=== PATIENT | female | born 1950 | race Caucasian/White ===

== ENCOUNTER → 2017-03-14 | Outpatient (CLI) | payer OTHER ==
--- NOTE | 2017-03-14 14:32 | MAMMOGRAPHY REPORT ---
BILATERAL DIGITAL SCREENING MAMMOGRAM WITH CAD: 03/14/2017 CLINICAL HISTORY: Routine screening examination. TECHNIQUE: Bilateral CC, MLO and repeat left cc views were obtained. Current study was also evaluat ed with a Computer Aided Detection (CAD) system. COMPARISON: Comparison is made to exams dated: 03/11/2016 mammogram, 03/10/2015 mammogram, 03/04/2014 ma mmogram, 03/01/2013 mammogram, 02/14/2012 mammogram, and 02/12/2011 ultrasound - [facility] nter. BREAST COMPOSITION: The tissue of both breasts is heterogeneously dense, which may obscure small mas ses. FINDINGS: There is a 4.5 mm nodular asymmetry in the superior posterior right breast, only seen on t he MLO view. Although this could represent normal overlapping fibroglandular tissue, additional spot compression tomosynthesis, exaggerated lateral CC tomosynthesis views and possibly ultrasound are re commended. There are minimal vascular calcifications in the breasts and a few scattered benign punctate microcal cifications. No other suspicious mass, architectural distortion or cluster of microcalcifications is seen bilaterally. IMPRESSION: ACR BI-RADS CATEGORY 0: INCOMPLETE EVALUATION: NEED ADDITIONAL IMAGING EVALUATION The 4.5 mm nodular asymmetry in the superior right breast on the MLO view needs additional evaluation . The patient will be called to schedule an appointment. Approximately 10% of breast cancers are not detected with mammography. A negative mammographic report should not delay biopsy if a clinically suggestive mass is present. Selina Carrion M.D. ay/:03/14/2017 12:55:24 Manager Body: Mariaa LIZARRAGA(Maria Dolores)(Zandra), [facility] letter sent: Addl Imaging 0 BI-RADS Code: ACR BI-RADS Category 0: Incomplete Evaluation: Need Additional Imaging Evaluation
== END | disposition home or self-care (01) ==
LOC: C.MAMM 10:38
PROVIDERS: ATTEND Family Medicine
DX: Z12.31 Encounter for screening mammogram for malignant neoplasm of breast (principal); N64.89 Other specified disorders of breast

== ENCOUNTER → 2017-03-22 | Outpatient (CLI) | payer OTHER ==
--- NOTE | 2017-03-22 14:53 | MAMMOGRAPHY REPORT ---
UNILATERAL RIGHT DIGITAL DIAGNOSTIC MAMMOGRAM TOMOSYNTHESIS AND TARGETED RIGHT ULTRASOUND: 03/22/2017 CLINICAL HISTORY: 66-year-old woman called back from screening mammography for a 5 mm nodular asymmet ry in the far superior right breast on the MLO view. Family history of breast cancer = sister and ni daphne. TECHNIQUE: Spot compression right MLO 2-D and tomosynthesis, spot compression exaggerated lateral CC 2-D and tomosynthesis, full-field right MLO tomosynthesis images were obtained. COMPARISON: Comparison is made to exams dated: 03/14/2017 mammogram, 03/11/2016 mammogram, 03/10/2015 m ammogram, 03/04/2014 mammogram, 02/14/2012 mammogram, and 02/12/2011 ultrasound - [facility] enter. BREAST COMPOSITION: The tissue of the right breast is heterogeneously dense, which may obscure small masses. FINDINGS: All of the supplemental mammographic views including the repeat full field MLO tomosynthes is images demonstrate effacement of the nodular asymmetry in the far superior breast located 10 cm fr om the nipple. The appearance on the current MLO view appears very similar to the 2016 exam, suggest ing the nodular asymmetry represented normal overlapping tissue. There is no focal area of wireless architect ural distortion, suspicious mass or suspicious microcalcifications. Real-time high-resolution ultrasound was performed throughout the superior right breast. Sonographic ally normal tissue is seen without a suspicious solid or cystic mass. IMPRESSION: ACR BI-RADS CATEGORY 2: BENIGN, TARGETED ULTRASOUND ACR BI-RADS CATEGORY 2: BENIGN Effacement of the 5 mm nodular asymmetry in the superior right breast on the MLO view, and no suspici ous sonographic correlate. This most likely represented normal overlapping tissue. There is no mamm ographic or targeted sonographic evidence of malignancy in the right breast. Recommend routine mammo grams in one year. Approximately 10% of breast cancers are not detected with mammography. A negative mammographic report should not delay biopsy if a clinically suggestive mass is present. Selina Carrion M.D. ay/:03/22/2017 10:20:00 Fruit Pitter: Eloisa TRENT)(Zandra), [facility] letter sent: Normal 1/2 BI-RADS Code: ACR BI-RADS Category 2: Benign Ultrasound BI-RADS: ACR BI-RADS Category 2: Benign
== END | disposition home or self-care (01) ==
LOC: C.MAMM 09:37
PROVIDERS: ATTEND Family Medicine
DX: N64.89 Other specified disorders of breast (principal)

== ENCOUNTER → 2018-03-21 | Outpatient (CLI) | payer OTHER ==
--- NOTE | 2018-03-21 15:12 | MAMMOGRAPHY REPORT ---
BILATERAL DIGITAL SCREENING MAMMOGRAM TOMOSYNTHESIS WITH CAD: 03/21/2018 CLINICAL HISTORY: Routine screening. Patient has no complaints. TECHNIQUE: The study was acquired using full field digital technology and interpreted from soft copy. Breast tomosynthesis in addition to standard 2D mammography was performed. Current study was also ev aluated with a Computer Aided Detection (CAD) system. COMPARISON: Comparison is made to exams dated: 03/22/2017 mammogram, 03/14/2017 mammogram, 03/11/2016 m ammogram, 03/10/2015 mammogram, 03/04/2014 mammogram, and 03/01/2013 mammogram - [facility] ter. BREAST COMPOSITION: The tissue of both breasts is heterogeneously dense, which may obscure small mass es. FINDINGS: The parenchymal pattern is unchanged. No developing mass, architectural distortion or cluster of susp icious microcalcifications is seen in either breast. IMPRESSION: ACR BI-RADS CATEGORY 2: BENIGN There is no mammographic evidence of malignancy. A 1 year screening mammogram is recommended.( [id number]) The patient will receive written notification of the results. Some breast cancers are not detected with mammography. A negative mammographic report should not mo y biopsy if a clinically suggestive mass is present. Selina Carrion M.D. ay/:03/21/2018 14:44:16 Rn L And D: RT Kevin(Maria Dolores)(M)(BD), [facility] letter sent: Normal 1/2 BI-RADS Code: ACR BI-RADS Category 2: Benign
== END | disposition home or self-care (01) ==
LOC: C.MAMM 10:27
PROVIDERS: ATTEND Family Medicine
DX: Z12.31 Encounter for screening mammogram for malignant neoplasm of breast (principal)

== ENCOUNTER 2025-06-17 13:06 | Inpatient (IN) ==
--- NOTE | 2025-06-17 13:17 | Emergency Department Note ---
Impression & Plan Intertrochanteric fracture of right femur, Fall ED Provider Note NAME: Zandra LONDON AGE: 74 SEX: F : 1950 ARRIVES VIA: Ambulance INFORMANT: Patient, ED PROVIDER(S): Loy Wall MD CHIEF COMPLAINT: Right hip pain MEDICAL DECISION MAKING: Patient presents with the above. IV was established and blood work was obtained. Patient was ordered right hip and pelvis x-rays. Given the associated groin pain concerned the patient may have a pelvic fracture and/or hip frx. The patient was ordered IV morphine 2 mg and IV Tylenol. Review of the patient's hip x-ray does show concern for a right intertrochanteric fracture. Yu catheter was placed. Patient with a white count 3.8. The patient's hemoglobin 11.9 virtually normal with normal platelet count kidney function is unremarkable. Urinalysis shows leuks and whites but denies any urinary symptoms. I did speak with the on-call hospital service Dr. Roca. I also did message with the on-call Ortho PA Byron Sr under Dr. Chao. They will plan to see here in the morning. I did inform the patient of the findings as well as her family at bedside. They were comfortable with plan of care. Patient was ordered additional pain medication IV fentanyl 50 mcg. Discussion w/ other healthcare providers: Byron Sr PA-C with Dr. Chao orthopedics Dr. Roca inpatient medicine service Prior /Outside records reviewed: None Differential diagnosis: Fracture, sprain, strain, subluxation, dislocation, contusion, ligamentous injury, neurovascular, as well as other etiologies were considered. Diagnostics, as interpreted by me: ECG: None Cardiac monitoring: An order was placed for continuous cardiac monitoring. The monitor shows a rate of 75 with sinus rhythm. Patient was placed on pulse oximetry Medical decision rules: None Imaging studies: I informally interpreted the patient's hip and pelvis x-ray does show a right intertrochanteric fracture with formal report to follow. HPI: Patient presents to concern for right hip and groin pain. The patient states that she was at the gym slightly missed stepped and she tried to catch herself but eventually fell over onto her right hip. Patient denies any head strike or LOC. The patient had immediate pain but was unable to get up. The patient feels as though she cannot straighten out the leg. She denies any numbness. No pain medication administered prior to arrival. PAST MEDICAL HISTORY: See Below PAST SURGICAL HISTORY: See Below SOCIAL HISTORY: See Below HOME MEDICATIONS: See Below ALLERGIES: See Below VITALS: See Below PHYSICAL EXAMINATION: GENERAL: NAD, non-toxic. EYE EXAM: Normal conjunctiva. PERRL, no anisocoria and EOM's grossly intact w/o pain. OROPHARYNX: Moist mucus membranes, grossly normal dentition. NECK: Trachea midline, no stridor. LUNGS: Clear to auscultation. Normal chest wall mechanics. HEART: NSR, no MRG. ABDOMEN: Abdomen soft, non-tender, no masses, no rebound or guarding. BACK: No CVA TTP. SKIN: No rashes and no bruising. UPPER EXTREMITIES: Upper extremities are grossly normal. LOWER EXTREMITIES: Pain to palpation over the right hip. No obvious leg length discrepancy. Pain with trying to straighten out the leg. NEURO EXAM: Awake and alert, follows commands, no obvious facial asymmetry, normal speech, moves all 4 extremities. Past Med/Surg History Problem List (Updated 06/17/25 @ 17:46 by Loy Wall MD) Intertrochanteric fracture of right femur (Acute) Fall (Acute) Medical History Parkinson disease Urinary, incontinence, stress female Depression Hypothyroidism Surgical History History of cataract surgery left History of colonoscopy History of bilateral tubal ligation History of tooth extraction History of tonsillectomy Family History Other No family history of adverse response to anesthesia Social History Smoking Status: Never smoker Second Hand Exposure: Yes (as a child); Do You Dip or Chew Tobacco: No; Hx Alcohol Use: No Preferred Language: [employer] [employer] Required: No Beliefs That Will Affect Care: None Current Living Situation: Family Current Living Situation Comment: with nephew Feels Safe at Home: Yes Assistive Devices: Denture - Upper and Glasses Allergies Allergies Allergy/AdvReac Type Severity Reaction Status Date / Time No Known Allergies Allergy Verified 06/17/25 16:06 Home Meds Home Medications Medication Instructions Recorded Confirmed Juice Plus Dose 1 cap PO BID 02/25/23 06/17/25 aspirin 81 mg tablet,delayed 81 mg PO DAILY 02/25/23 06/17/25 release calcium 200 mg (as 3 tab PO DAILY 02/25/23 06/17/25 citrate)-vitamin D3 3.125 mcg (125 unit) tablet cholecalciferol (vitamin D3) 25 25 mcg PO QAM 02/25/23 06/17/25 mcg (1,000 unit) tablet (Vitamin D3) fluoxetine 20 mg tablet 20 mg PO QAM 02/25/23 06/17/25 fluoxetine 40 mg capsule 40 mg PO QAM 02/25/23 06/17/25 levothyroxine 50 mcg capsule 50 mcg PO QAM 02/25/23 06/17/25 carbidopa 25 mg-levodopa 100 mg 1 tab PO DAILY 06/17/25 06/17/25 tablet duloxetine 30 mg capsule,delayed 30 mg PO DAILY 06/17/25 06/17/25 release duloxetine 60 mg capsule,delayed 60 mg PO DAILY 06/17/25 06/17/25 release estradiol 0.01% (0.1 mg/gram) 1 applic vaginal DAILY 06/17/25 06/17/25 vaginal cream fesoterodine 8 mg tablet,extended 8 mg PO DAILY 06/17/25 06/17/25 release 24 hr mirabegron 50 mg tablet,extended 50 mg PO DAILY 06/17/25 06/17/25 release 24 hr (Myrbetriq) rasagiline 0.5 mg tablet 0.5 mg PO DAILY 06/17/25 06/17/25 Results & Data (ED) Vital Signs Vital Signs - 24 hr 06/17/25 13:14 06/17/25 13:24 06/17/25 13:25 Temperature 36.8 C Temperature Source Oral Pulse Rate 81 79 75 Pulse Rate from SpO2 Sensor 78 Pulse Rhythm Regular Pulse Strength Normal Respiratory Rate 16 16 Respiratory Effort / Characteristics Non-Labored Spontaneous Respiratory Depth Normal Respiratory Pattern Regular Blood Pressure 159/115 H Blood Pressure Mean 129 Pulse Oximetry 99 98 Oxygen Delivery Method Room Air Sepsis Recent Fever Within 48 Hours No Sepsis New/Unexplained Change in Mental Status N/A Sepsis Action Taken by Nursing No Action Required 06/17/25 13:30 06/17/25 13:42 06/17/25 13:51 Temperature Temperature Source Pulse Rate 70 77 73 Pulse Rate from SpO2 Sensor 69 77 74 Pulse Rhythm Pulse Strength Respiratory Rate 19 15 16 Respiratory Effort / Characteristics Respiratory Depth Respiratory Pattern Blood Pressure Blood Pressure Mean Pulse Oximetry 98 99 99 Oxygen Delivery Method Sepsis Recent Fever Within 48 Hours Sepsis New/Unexplained Change in Mental Status Sepsis Action Taken by Nursing 06/17/25 14:00 06/17/25 14:12 06/17/25 14:18 Temperature Temperature Source Pulse Rate 67 71 82 Pulse Rate from SpO2 Sensor 67 70 Pulse Rhythm Pulse Strength Respiratory Rate 17 19 20 Respiratory Effort / Characteristics Respiratory Depth Respiratory Pattern Blood Pressure Blood Pressure Mean Pulse Oximetry 100 99 Oxygen Delivery Method Sepsis Recent Fever Within 48 Hours Sepsis New/Unexplained Change in Mental Status Sepsis Action Taken by Nursing 06/17/25 14:26 06/17/25 14:26 06/17/25 14:26 Temperature Temperature Source Pulse Rate Pulse Rate from SpO2 Sensor Pulse Rhythm Pulse Strength Respiratory Rate Respiratory Effort / Characteristics Respiratory Depth Respiratory Pattern Blood Pressure 137/82 137/82 137/82 Blood Pressure Mean 104 104 104 Pulse Oximetry Oxygen Delivery Method Sepsis Recent Fever Within 48 Hours Sepsis New/Unexplained Change in Mental Status Sepsis Action Taken by Nursing 06/17/25 14:26 06/17/25 14:26 06/17/25 14:27 Temperature Temperature Source Pulse Rate 71 Pulse Rate from SpO2 Sensor Pulse Rhythm Pulse Strength Respiratory Rate 19 Respiratory Effort / Characteristics Respiratory Depth Respiratory Pattern Blood Pressure 137/82 137/82 Blood Pressure Mean 104 104 Pulse Oximetry Oxygen Delivery Method Sepsis Recent Fever Within 48 Hours Sepsis New/Unexplained Change in Mental Status Sepsis Action Taken by Nursing 06/17/25 14:30 06/17/25 14:42 06/17/25 14:51 Temperature Temperature Source Pulse Rate 80 72 70 Pulse Rate from SpO2 Sensor Pulse Rhythm Pulse Strength Respiratory Rate 18 18 19 Respiratory Effort / Characteristics Respiratory Depth Respiratory Pattern Blood Pressure Blood Pressure Mean Pulse Oximetry Oxygen Delivery Method Sepsis Recent Fever Within 48 Hours Sepsis New/Unexplained Change in Mental Status Sepsis Action Taken by Nursing 06/17/25 15:00 06/17/25 15:00 06/17/25 15:00 Temperature Temperature Source Pulse Rate 76 Pulse Rate from SpO2 Sensor Pulse Rhythm Pulse Strength Respiratory Rate 16 Respiratory Effort / Characteristics Respiratory Depth Respiratory Pattern Blood Pressure 120/79 120/79 Blood Pressure Mean 90 90 Pulse Oximetry Oxygen Delivery Method Sepsis Recent Fever Within 48 Hours Sepsis New/Unexplained Change in Mental Status Sepsis Action Taken by Nursing 06/17/25 15:00 06/17/25 15:00 06/17/25 15:00 Temperature Temperature Source Pulse Rate Pulse Rate from SpO2 Sensor Pulse Rhythm Pulse Strength Respiratory Rate Respiratory Effort / Characteristics Respiratory Depth Respiratory Pattern Blood Pressure 120/79 120/79 120/79 Blood Pressure Mean 90 90 90 Pulse Oximetry Oxygen Delivery Method Sepsis Recent Fever Within 48 Hours Sepsis New/Unexplained Change in Mental Status Sepsis Action Taken by Nursing 06/17/25 15:12 06/17/25 15:21 06/17/25 15:30 Temperature Temperature Source Pulse Rate 69 72 75 Pulse Rate from SpO2 Sensor Pulse Rhythm Pulse Strength Respiratory Rate 16 18 21 Respiratory Effort / Characteristics Respiratory Depth Respiratory Pattern Blood Pressure Blood Pressure Mean Pulse Oximetry Oxygen Delivery Method Sepsis Recent Fever Within 48 Hours Sepsis New/Unexplained Change in Mental Status Sepsis Action Taken by Nursing 06/17/25 15:42 06/17/25 15:46 06/17/25 15:51 Temperature Temperature Source Pulse Rate 74 78 Pulse Rate from SpO2 Sensor Pulse Rhythm Pulse Strength Respiratory Rate 17 16 Respiratory Effort / Characteristics Respiratory Depth Respiratory Pattern Blood Pressure 120/79 Blood Pressure Mean 92 Pulse Oximetry 97 99 Oxygen Delivery Method Room Air Room Air Sepsis Recent Fever Within 48 Hours Sepsis New/Unexplained Change in Mental Status Sepsis Action Taken by Nursing 06/17/25 17:30 Temperature Temperature Source Pulse Rate 76 Pulse Rate from SpO2 Sensor Pulse Rhythm Pulse Strength Respiratory Rate 20 Respiratory Effort / Characteristics Respiratory Depth Respiratory Pattern Blood Pressure 132/73 Blood Pressure Mean 92 Pulse Oximetry 98 Oxygen Delivery Method Sepsis Recent Fever Within 48 Hours Sepsis New/Unexplained Change in Mental Status Sepsis Action Taken by Assisted Medications Current Medication List: was personally reviewed by me Laboratory Data Attestation: I reviewed the patient's lab results. 06/17/25 13:55 06/17/25 13:55 Lab Results 06/17/25 06/17/25 Range/Units 13:55 14:26 WBC 3.83 L (4.8-10.8) K/ul RBC 3.78 L (4.20-5.40) M/uL Hgb 11.9 L (12.0-16.0) g/dL Hct 35.8 L (37.0-47.0) % MCV 94.7 (80.0-100.0) fL MCH 31.5 (25.0-34.0) pg MCHC 33.2 (32.0-36.0) g/dL RDW Std Deviation 41.8 (36.4-46.3) fL RDW Coeff of Asha 12.0 (11.5-14.5) % Plt Count 186 (130-400) K/uL MPV 9.3 L (9.4-12.4) fL Immature Gran % (Auto) 0.3 % Neut % (Auto) 57.4 % Lymph % (Auto) 30.0 % [place] % (Auto) 9.1 % Eos % (Auto) 2.9 % Baso % (Auto) 0.3 % Neut # (Auto) 2.20 (1.40-6.50) K/uL Lymph # (Auto) 1.15 L (1.20-3.40) K/uL [place] # (Auto) 0.35 (0.11-0.59) K/uL Eos # (Auto) 0.11 (0.00-0.50) K/uL Baso # (Auto) 0.01 (0.00-0.20) K/uL Immature Gran # (Auto) 0.01 (0.01-0.20) K/uL PT 10.8 (9.0-12.0) Seconds INR 1.0 (0.9-1.1) APTT 23 (21-31) Seconds PTT Ratio 0.8 Sodium 139 (136-145) mmol/L Potassium 4.2 (3.5-5.1) mmol/L Chloride 105 (98-107) mmol/L Carbon Dioxide 30 (21-32) mmol/L Anion Gap 4 (3-11) BUN 17 (6-23) mg/dl Creatinine 0.63 (0.6-1.2) mg/dl Est Cr Clr Drug Dosing 69.9 ml/min eGFR 93.03 BUN/Creatinine Ratio 27.0 H (10-20) Glucose 90 (70-99(Fasting)) mg/dl Calcium 9.1 (8.6-10.3) mg/dl Total Bilirubin 0.4 (0.2-1.0) mg/dl AST 19 (13-39) U/L ALT 6 L (7-52) U/L Alkaline Phosphatase 71 (34-104) U/L Total Protein 6.3 (6.0-8.3) gm/dl Albumin 3.5 (3.4-5.0) gm/dl Globulin 2.8 (2.5-4.0) gm/dl Albumin/Globulin Ratio 1.3 (0.9-2) Urine Color Yellow Urine Appearance Clear (Clear) Urine pH 7.5 (4.5-7.5) Ur Specific Dorothy 1.009 (1.000-1.030) Urine Protein Negative (Negative) Urine Glucose (UA) Negative (Negative) Urine Ketones Negative (Negative) Urine Blood Negative (Negative) Urine Nitrite Negative (Negative) Urine Bilirubin Negative (Negative) Urine Urobilinogen Negative (Negative) Ur Leukocyte Esterase 3+ H (Negative) Urine WBC (Auto) 6-10 H (0-5) /hpf Urine RBC (Auto) 0-2 (0-2) /hpf U Hyaline Cast (Auto) 0-2 (0-2) /lpf U Epithel Cells (Auto) 0-2 (0-2) /hpf Urine Bacteria (Auto) None Seen (None Seen) Urine Comment Administered Medications Discontinued Medications Fentanyl Citrate (Fentanyl Citrate Pf 100 Mcg/2 Ml Vial) 50 mcg IV NOW STA Stop: 06/17/25 15:30 Last Admin: 06/17/25 15:40 Dose: 50 mcg Documented By: nrs Acetaminophen (Ofirmev) 1,000 mg in 100 mls @ 400 mls/hr IV NOW STA Stop: 06/17/25 13:53 Last Infusion: 06/17/25 15:41 Dose: Infused Documented By: nrs Admin: 06/17/25 14:20 Dose: 400 mls/hr Documented By: nrs Morphine Sulfate (Morphine Sulfate 2 Mg/Ml Carp) 2 mg IV NOW STA Stop: 06/17/25 13:40 Last Admin: 06/17/25 14:20 Dose: 2 mg Documented By: nrs Morphine Sulfate (Morphine Sulfate 4 Mg/Ml 1 Ml Carp\Vial) 3 mg IV NOW STA Stop: 06/17/25 16:38 Last Admin: 06/17/25 16:56 Dose: 3 mg Documented By: nrs Imaging Data Radiologist's Impression: Hip/Pelvis X-Ray 06/17/25 13:39 SINGLE VIEW PELVIS; 2 VIEWS RIGHT HIP CLINICAL HISTORY: Fall with right hip injury. FINDINGS: An AP view of the pelvis is obtained with AP and crosstable lateral views of the right hip. No prior studies are available for comparison at the time of dictation. The skeletal structures are osteopenic. There is a mildly displaced intertrochanteric fracture of the right proximal femur. Overlying soft tissue edema is observed. No additional acute fracture is seen involving the left hip or the bony pelvis. There is moderate to advanced arthritic change and joint space narrowing seen in both hips. Lumbosacral spondylosis is partially imaged. Degenerative sclerosis is noted in the sacroiliac joints. IMPRESSION: Intertrochanteric fracture of the right proximal femur as above. Electronically signed by: Olaf Daley M.D. 06/17/2025 3:46 PM Discharge Plan Visit Data Chief Complaint: Hip Pain Stated Complaint: FALL, R HIP PAIN ED Provider: Loy Wall Discharge Problem: Intertrochanteric fracture of right femur, Fall Patient Disposition: Admitted As Inpatient Condition: Good Forms Stand Alone Forms: [facility] [employer] Prescriptions Prescriptions: No Action fluoxetine 40 mg Capsule 40 mg PO QAM Rx Instructions: administer in the morning and at noon/midday fluoxetine 20 mg Tablet 20 mg PO QAM Rx Instructions: administer in the morning and at noon/midday levothyroxine 50 mcg Capsule 50 mcg PO QAM aspirin 81 mg Tablet,Delayed Release (Dr/Ec) 81 mg PO DAILY calcium citrate-vitamin D3 200 mg-3.125 mcg (125 unit) Tablet 3 tab PO DAILY cholecalciferol (vitamin D3) [Vitamin D3] 25 mcg (1,000 unit) Tablet 25 mcg PO QAM Juice Plus Dose 1 cap PO BID estradiol 0.01 % (0.1 mg/gram) cream 1 applic VAGINAL DAILY carbidopa-levodopa 25-100 mg tablet 1 tab PO DAILY duloxetine 30 mg capsule,delayed release(DR/EC) 30 mg PO DAILY duloxetine 60 mg capsule,delayed release(DR/EC) 60 mg PO DAILY rasagiline 0.5 mg tablet 0.5 mg PO DAILY fesoterodine 8 mg tablet extended release 24 hr 8 mg PO DAILY mirabegron [Myrbetriq] 50 mg tablet extended release 24 hr 50 mg PO DAILY Referrals Referrals: Mallory Figueroa CRNP [Primary Care Provider] - Discharge Problem: Intertrochanteric fracture of right femur Qualifiers: Encounter type: initial encounter Fracture type: closed Fracture alignment: d isplaced Qualified Code(s): S72.141A - Displaced intertrochanteric fracture of right femur, initial encounter for closed fracture Fall Qualifiers: Encounter type: initial encounter Qualified Code(s): W19.XXXA - Unspecified fall, initial encounter
[2025-06-17] MEDS: MoRPHine SULFATE 2 MG/ML CARP IV STA (14:20)
[2025-06-17] MEDS: ACETAMINOPHEN 1,000 MG/100 ML VIAL IV STA (14:20)
[2025-06-17 14:29] LABS: Hematocrit (blood only) 35.8 % (37.0-47.0); Hemoglobin 11.9 g/dL (12.0-16.0); Immature Granulocytes # (auto) 0.01 K/uL (0.01-0.20); Immature Granulocytes % (auto) 0.3 %; Mean Corpuscular Hemoglobin 31.5 pg (25.0-34.0); Mean Corpuscular Volume 94.7 fL (80.0-100.0); Platelet Count 186 K/uL (130-400); RDW Standard Deviation 41.8 fL (36.4-46.3); Red Blood Count 3.78 M/uL (4.20-5.40); White Blood Count 3.83 K/ul (4.8-10.8)
[2025-06-17 14:39] LABS: Appearance Urine Clear (Clear); Bacteria Urine Automated None Seen (None Seen); Cast Urine Automated 0-2 /lpf (0-2); Epithelial Cell Urine Auto 0-2 /hpf (0-2); Glucose Urine UA Negative (Negative); RBC Urine Automated 0-2 /hpf (0-2)
[2025-06-17 14:46] LABS: Alanine Aminotransferase 6.0 U/L (7-52); Albumin Globulin Ratio 1.3 (0.9-2); Albumin Level 3.5 gm/dl (3.4-5.0); Alkaline Phosphatase 71.0 U/L (34-104); Anion Gap 4.0 (3-11); Bilirubin,Total 0.4 mg/dl (0.2-1.0); Blood Urea Nitrogen 17.0 mg/dl (6-23); Calcium 9.1 mg/dl (8.6-10.3); Carbon Dioxide 30.0 mmol/L (21-32); Chloride 105.0 mmol/L (98-107); Creatinine Clr Calc Pharmacy 69.9 ml/min; Globulin 2.8 gm/dl (2.5-4.0); Glucose 90.0 mg/dl (70-99(Fasting)); Potassium 4.2 mmol/L (3.5-5.1); Sodium 139.0 mmol/L (136-145); Total Protein 6.3 gm/dl (6.0-8.3)
[2025-06-17 15:12] LABS: INR 1.0 (0.9-1.1); Partial Thromboplastin Time 23 Seconds (21-31); Prothrombin Time 10.8 Seconds (9.0-12.0)
--- NOTE | 2025-06-17 15:47 | XRay Report ---
SINGLE VIEW PELVIS; 2 VIEWS RIGHT HIP CLINICAL HISTORY: Fall with right hip injury. FINDINGS: An AP view of the pelvis is obtained with AP and crosstable lateral views of the right hip. No prior studies are available for comparison at the time of dictation. The skeletal structures are osteopenic. There is a mildly displaced intertrochanteric fracture of the right proximal femur. [place]l [place] soft tissue edema is observed. No additional acute fracture is seen involving the left hip or th e bony pelvis. There is moderate to advanced arthritic change and joint space narrowing seen in both hips. Lumbosacral spondylosis is partially imaged. Degenerative sclerosis is noted in the sacroiliac joints. IMPRESSION: Intertrochanteric fracture of the right proximal femur as above. Electronically signed by: Olaf Daley M.D. 06/17/2025 3:46 PM
--- NOTE | 2025-06-17 16:10 | History & Physical Report ---
Date of Service June 17, 2025 Assessment & Plan (1) Fall: (2) Intertrochanteric fracture of right femur: (3) Parkinson disease: (4) Hypothyroidism: Plan This is a 74-year-old female who has significant past medical history of hypothyroidism, Parkinson disease & major depressive disorder who presents to ED after ground level fall prior to arrival. #Fall #Intertrochanteric fracture of right femur fracture admit to med/surg NPO after midnight Consult [facility] Pre op antibiotics ordered Pt RCRI score 0, 0.5% risk of major cardiac event, okay to proceed with surgery ECG and CXR reviewed, pt with good exertional capacity with need PT/OT post op #Parkinson disease chronic, stable, continue meds #MDD: mood stable, continue cymbalta and prozac #Family hx of Hemophilia A pt reports brother and mother both had, she was not tested Pt reports her mother had bleeding issues after she broke her hip and thats how they discovered pt denies hx of major bleeding issues, will need close monitoring of hgb post op #DVT ppx: SCDS for now FULL CODE PCP: Mallory Figueroa Dispo: admit to medical, npo after midnight PT was seen and examined in collaboration with Dr. Roca, please see addendum I spent a total of 75 minutes coordinating, documenting and providing care for t his patient excluding time spent in the performance of separately billed services or time spent by another provider/QHP. History of Present Illness Chief Complaint: Fall prior to arrival with right hip pain. Primary Care Provider: NITNI Handley This is a 74-year-old female who has significant past medical history of hypothyroidism, Parkinson disease & major depressive disorder who presents to ED after ground level fall prior to arrival. She states she was at the gym doing a work out class around noon when she went to step up and fell to her Right side. She immediately had pain and was unable to get up. She denies LOC or striking her head. Her brother and sister in law were at bedside. She states she goes to the gym and does a work out class for 30 min 3-4x a week. She is very active. She denies any chest pain or sob with exertion during these activities. She denies recent illness, f/c/s, n/v/d, abd pain. She has been passing urine and stool w/o difficulty. She denies dysuria, increased urg/freq with urination. She denies being on blood thinners other than a daily baby aspirin. Allergies Allergy/AdvReac Type Severity Reaction Status Date / Time No Known Allergies Allergy Verified 06/17/25 16:06 Home Medications Medication Instructions Recorded Confirmed Type Juice Plus Dose 1 cap PO BID 02/25/23 06/17/25 History aspirin 81 mg tablet,delayed 81 mg PO DAILY 02/25/23 06/17/25 History release calcium 200 mg (as 3 tab PO DAILY 02/25/23 06/17/25 History citrate)-vitamin D3 3.125 mcg (125 unit) tablet cholecalciferol (vitamin D3) 25 25 mcg PO QAM 02/25/23 06/17/25 History mcg (1,000 unit) tablet (Vitamin D3) fluoxetine 20 mg tablet 20 mg PO QAM 02/25/23 06/17/25 History fluoxetine 40 mg capsule 40 mg PO QAM 02/25/23 06/17/25 History levothyroxine 50 mcg capsule 50 mcg PO QAM 02/25/23 06/17/25 History carbidopa 25 mg-levodopa 100 mg 1 tab PO DAILY 06/17/25 06/17/25 History tablet duloxetine 30 mg capsule,delayed 30 mg PO DAILY 06/17/25 06/17/25 History release duloxetine 60 mg capsule,delayed 60 mg PO DAILY 06/17/25 06/17/25 History release estradiol 0.01% (0.1 mg/gram) 1 applic vaginal DAILY 06/17/25 06/17/25 History vaginal cream fesoterodine 8 mg tablet,extended 8 mg PO DAILY 06/17/25 06/17/25 History release 24 hr mirabegron 50 mg tablet,extended 50 mg PO DAILY 06/17/25 06/17/25 History release 24 hr (Myrbetriq) rasagiline 0.5 mg tablet 0.5 mg PO DAILY 06/17/25 06/17/25 History Past Med/Surg History Problem List (Updated 06/17/25 @ 17:01 by Arelis Epperson PA-C) Intertrochanteric fracture of right femur Fall Medical History (Updated 06/17/25 @ 17:01 by Arelis Epperson PA-C) Parkinson disease Urinary, incontinence, stress female Depression Hypothyroidism Surgical History History of cataract surgery left History of colonoscopy History of bilateral tubal ligation History of tooth extraction History of tonsillectomy Family History Other No family history of adverse response to anesthesia Social History Smoking Status: Never smoker Second Hand Exposure: Yes (as a child); Do You Dip or Chew Tobacco: No; Hx Alcohol Use: No Preferred Language: [place] Citizen [employer] Required: No Beliefs That Will Affect Care: None Current Living Situation: Family Current Living Situation Comment: with nephew Feels Safe at Home: Yes Assistive Devices: Denture - Upper and Glasses Review of Systems Review of Systems: All systems reviewed & are unremarkable except as noted in HPI & below Physical Exam Physical Exam: constitutional: thin, F, appears state age, vitals as above, NAD, sitting up in bed, pleasant, conversing easily Head: Normocephalic, Atraumatic Eyes: conjunctivae normal, anicteric sclerae ENMT: external ear and nose normal, oropharynx normal Neck: trachea midline, no thyromegaly normal visual inspection Respiratory: CTAB, no W/R/R, normal inspection, no accessory muscle use Cardiovascular: RRR, no murmur, no edema Chest: normal inspection of chest Abdomen: S, NT, ND, +BS x 4 Musculoskeletal: no cyanosis or clubbing, RLE shortened and foot externally rotated, good peripheral pulses +2 Skin: no rashes, warm and dry normal turgor Neurologic: no face palsy, no dysarthria CN's II-XI intact bilaterally and moves all extremities Psychiatric: A+Ox3, euthymic affect Results & Data Results & Data Vital Signs (Past 12 Hours) Vital Signs Temp Pulse Resp BP Pulse Ox O2 Del Method 06/17/25 15:46 78 16 120/79 97 Room Air 06/17/25 15:42 74 17 06/17/25 15:30 75 21 06/17/25 15:21 72 18 06/17/25 15:12 69 16 06/17/25 15:00 120/79 06/17/25 15:00 120/79 06/17/25 15:00 120/79 06/17/25 15:00 120/79 06/17/25 15:00 120/79 06/17/25 15:00 76 16 06/17/25 14:51 70 19 06/17/25 14:42 72 18 06/17/25 14:30 80 18 06/17/25 14:27 71 19 06/17/25 14:26 137/82 06/17/25 14:26 137/82 06/17/25 14:26 137/82 06/17/25 14:26 137/82 06/17/25 14:26 137/82 06/17/25 14:18 82 20 06/17/25 14:12 71 19 99 06/17/25 14:00 67 17 100 06/17/25 13:51 73 16 99 06/17/25 13:42 77 15 99 06/17/25 13:30 70 19 98 06/17/25 13:25 75 06/17/25 13:24 79 16 98 06/17/25 13:14 36.8 C 81 16 159/115 H 99 Room Air Laboratory Results I have independently reviewed and interpreted patient's admitting labs including CBC, CMP, PTT, PT/INR, UA Diagnostic Findings Hip/Pelvis X-Ray 06/17/25 13:39 SINGLE VIEW PELVIS; 2 VIEWS RIGHT HIP CLINICAL HISTORY: Fall with right hip injury. FINDINGS: An AP view of the pelvis is obtained with AP and crosstable lateral views of the right hip. No prior studies are available for comparison at the time of dictation. The skeletal structures are osteopenic. There is a mildly displaced intertrochanteric fracture of the right proximal femur. Overlying soft tissue edema is observed. No additional acute fracture is seen involving the left hip or the bony pelvis. There is moderate to advanced arthritic change and joint space narrowing seen in both hips. Lumbosacral spondylosis is partially imaged. Degenerative sclerosis is noted in the sacroiliac joints. IMPRESSION: Intertrochanteric fracture of the right proximal femur as above. Electronically signed by: Olaf Daley M.D. 06/17/2025 3:46 PM Medications Administered Medication List Discontinued Medications Fentanyl Citrate (Fentanyl Citrate Pf 100 Mcg/2 Ml Vial) 50 mcg IV NOW STA Stop: 06/17/25 15:30 Last Admin: 06/17/25 15:40 Dose: 50 mcg Documented By: nrs Acetaminophen (Ofirmev) 1,000 mg in 100 mls @ 400 mls/hr IV NOW STA Stop: 06/17/25 13:53 Last Infusion: 06/17/25 15:41 Dose: Infused Documented By: nrs Admin: 06/17/25 14:20 Dose: 400 mls/hr Documented By: nrs Morphine Sulfate (Morphine Sulfate 2 Mg/Ml Carp) 2 mg IV NOW STA Stop: 06/17/25 13:40 Last Admin: 06/17/25 14:20 Dose: 2 mg Documented By: nrs ECG Additional Comments: I have independently reviewed and interpreted patient's admitting EKG which revealed: NSR 68 bpm, no st or t wave changes COVID-19 Results Results COVID-19 Adm Lab Results: RBC 3.78 M/uL (4.20-5.40) L 06/17/25 WBC 3.83 K/ul (4.8-10.8) L 06/17/25 Hgb 11.9 g/dL (12.0-16.0) L 06/17/25 Hct 35.8 % (37.0-47.0) L 06/17/25 Plt Count 186 K/uL (130-400) 06/17/25 Neutrophils (%) (Auto) 57.4 % 06/17/25 Lymphocytes (%) (Auto) 30.0 % 06/17/25 Monocytes # (Auto) 0.35 K/uL (0.11-0.59) 06/17/25 Eosinophils # (Auto) 0.11 K/uL (0.00-0.50) 06/17/25 Immature Granulocyte % (Auto) 0.3 % 06/17/25 Neutrophils # (Auto) 2.20 K/uL (1.40-6.50) 06/17/25 Lymphocytes # (Auto) 1.15 K/uL (1.20-3.40) L 06/17/25 Monocytes # (Auto) 0.35 K/uL (0.11-0.59) 06/17/25 Eosinophils # (Auto) 0.11 K/uL (0.00-0.50) 06/17/25 Basophils # (Auto) 0.01 K/uL (0.00-0.20) 06/17/25 Immature Granulocyte # (Auto) 0.01 K/uL (0.01-0.20) 5 Na 139 mmol/L (136-145) 06/17/25 K 4.2 mmol/L (3.5-5.1) 06/17/25 Cl 105 mmol/L (98-107) 06/17/25 CO2 30 mmol/L (21-32) 06/17/25 Anion Gap 4 (3-11) 06/17/25 BUN 17 mg/dl (6-23) 06/17/25 Creatinine 0.63 mg/dl (0.6-1.2) 06/17/25 BUN/Creatinine Ratio 27.0 (10-20) H 06/17/25 Glucose Level 90 mg/dl (70-99(Fasting)) 06/17/25 Ca 9.1 mg/dl (8.6-10.3) 06/17/25 Total Bilirubin 0.4 mg/dl (0.2-1.0) 06/17/25 AST/SGOT 19 U/L (13-39) 06/17/25 ALT/SGPT 6 U/L (7-52) L 06/17/25 Alkaline Phosphatase 71 U/L (34-104) 06/17/25 Total Protein 6.3 gm/dl (6.0-8.3) 06/17/25 Albumin 3.5 gm/dl (3.4-5.0) 06/17/25 Globulin 2.8 gm/dl (2.5-4.0) 06/17/25 Albumin/Globulin Ratio 1.3 (0.9-2) 06/17/25 PTT 23 Seconds (21-31) 06/17/25 INR 1.0 (0.9-1.1) 06/17/25 Code Status & VTE Plan Code Status FULL CODE VTE Prophylaxis Plan VTE Prophylaxis will be ordered: Yes Supervising Physician Co-Signing Physician Notes 74 yo F w/ ho parkinson's dz, hypothyroidism, depression presents after fall on right hip. She was working out in gym, foot slipped and missed step and fell. She denies trauma to head / LOC. Pt noted to have Intertrochanteric fracture of the right proximal femur. pt denies ho stroke, mi, stent, copd, asthma. pain mx, npo midnight, ortho consult. pt is at acceptable risk for much needed surgery. On exam: RLE slightly shortened and ext rotated, rest of exam as above. Time spent independently: 21 min I have seen and examined the patient and have discussed the case with the provider above. I agree with the assessment and plan as stated.
[2025-06-17] MEDS: MoRPHine SULFATE 4 MG/ML 1 ML CARP\\VIAL IV STA (16:56)
[2025-06-17] MEDS: HYDROmorphone INJ 0.5 MG/0.5 ML SYR IV STA (17:44)
[2025-06-17] MEDS ORDERED: POLYETHYLENE (MIRALAX) 17 GM PACK PO PRN (18:16)
[2025-06-17] MEDS ORDERED: NALOXONE HCL 0.4 MG/1 ML VIAL/CARP IV PRN (18:16)
[2025-06-17] MEDS ORDERED: MAGNESIUM HYDROXIDE SUSP 30 ML UDC PO PRN (18:16)
[2025-06-17] MEDS ORDERED: ALUMINUM/MAGNESIUM SUSP 30 ML UDC PO PRN (18:16)
[2025-06-17] MEDS: MoRPHine SULFATE 4 MG/ML 1 ML CARP\\VIAL IV PRN (18:28)
[2025-06-17] MEDS ORDERED: PNEUMOCOCCAL VACCINE (PCV20) 20-VAL CONJ-DIP CRM/PF 0.5 ML SYR IM ONE (18:57)
[2025-06-17] MEDS: DOCUSATE SODIUM/SENNA 50/8.6MG TAB PO SCH (20:21)
[2025-06-17] MEDS: MELATONIN 3 MG TAB PO PRN (20:21)
[2025-06-17] MEDS ORDERED: ACETAMINOPHEN 325 MG TAB PO PRN (22:00)
--- NOTE | 2025-06-18 05:48 | Electrocardiogram Report ---
Test Reason : Blood Pressure : */* mmHG Vent. Rate : 68 BPM Atrial Rate : 68 BPM P-R Int : 172 ms QRS Dur : 66 ms QT Int : 414 ms P-R-T Axes : 71 63 78 degrees QTcB Int : 440 ms Normal sinus rhythm Cannot rule out Anterior infarct , age undetermined Abnormal ECG No previous ECGs available Confirmed by Mino Griffin ([id number]) on 06/18/2025 5:47:52 AM Referred By: Confirmed By: Mino Griffin
[2025-06-18] MEDS: LEVOTHYROXINE SODIUM 50 MCG TABLET PO SCH (05:56)
[2025-06-18 07:59] LABS: Hematocrit (blood only) 31.3 % (37.0-47.0); Hemoglobin 10.4 g/dL (12.0-16.0); Immature Granulocytes # (auto) 0.01 K/uL (0.01-0.20); Immature Granulocytes % (auto) 0.2 %; Mean Corpuscular Hemoglobin 31.7 pg (25.0-34.0); Mean Corpuscular Volume 95.4 fL (80.0-100.0); Platelet Count 161 K/uL (130-400); RDW Standard Deviation 41.8 fL (36.4-46.3); Red Blood Count 3.28 M/uL (4.20-5.40); White Blood Count 5.16 K/ul (4.8-10.8)
[2025-06-18 08:17] LABS: Alanine Aminotransferase 10.0 U/L (7-52); Albumin Globulin Ratio 1.5 (0.9-2); Albumin Level 3.6 gm/dl (3.4-5.0); Alkaline Phosphatase 61.0 U/L (34-104); Anion Gap 8.0 (3-11); Bilirubin,Total 0.5 mg/dl (0.2-1.0); Blood Urea Nitrogen 22.0 mg/dl (6-23); Calcium 9.1 mg/dl (8.6-10.3); Carbon Dioxide 29.0 mmol/L (21-32); Chloride 105.0 mmol/L (98-107); Creatinine Clr Calc Pharmacy 68.8 ml/min; Globulin 2.4 gm/dl (2.5-4.0); Glucose 91.0 mg/dl (70-99(Fasting)); Magnesium 1.8 mg/dl (1.7-2.4); Potassium 4.0 mmol/L (3.5-5.1); Sodium 142.0 mmol/L (136-145); Total Protein 6.0 gm/dl (6.0-8.3)
[2025-06-18] MEDS ORDERED: NON-FORMULARY MEDICATION (Fluoxetine 20 mg Tablet) PO SCH (09:00)
--- NOTE | 2025-06-18 09:24 | Orthopedic Consultation ---
Date of Service June 18, 2025 Assessment & Plan (1) Intertrochanteric fracture of right femur: * Case/imaging reviewed and discussed with Dr Pedro * Recommend OR fixation of right femur * Plan for OR 06/18, cleared per note * Weight bearing status: NWB pre-op * Maintain NPO * Pain control * Disposition: TBD * Remainder care per primary team * Will continue to follow History of Present Illness Reason for Consultation: Right hip pain Requesting Physician: . Attending Physician: Niles Lang DO .Patient is a 74 y/o female with right hip pain. PMH including hypothyroidism, Parkinson disease & major depressive disorder. Presents to hospital with right hip pain after a fall. Per patient she was at the gym when she lost her balance while stepping onto equipment causing her to fall and land on her right side. Unable to ambulate following the fall, brought to ED for evaluation. Current workup including XR right hip demonstrating intertrochanteric femur fracture. Admitted to hospital medicine team. Orthopedics consulted for management recommendations. At time of exam patient lying in bed, no acute distress. Moderate right hip pain at rest that increases with attempted movement. Denies tingling or numbness of right leg. Allergies Allergy/AdvReac Type Severity Reaction Status Date / Time No Known Allergies Allergy Verified 06/17/25 16:06 Home Medications Medication Instructions Recorded Confirmed Type Juice Plus Dose 1 cap PO BID 02/25/23 06/17/25 History aspirin 81 mg tablet,delayed 81 mg PO DAILY 02/25/23 06/17/25 History release calcium 200 mg (as 3 tab PO DAILY 02/25/23 06/17/25 History citrate)-vitamin D3 3.125 mcg (125 unit) tablet cholecalciferol (vitamin D3) 25 25 mcg PO QAM 02/25/23 06/17/25 History mcg (1,000 unit) tablet (Vitamin D3) fluoxetine 20 mg tablet 20 mg PO QAM 02/25/23 06/17/25 History fluoxetine 40 mg capsule 40 mg PO QAM 02/25/23 06/17/25 History levothyroxine 50 mcg capsule 50 mcg PO QAM 02/25/23 06/17/25 History carbidopa 25 mg-levodopa 100 mg 1 tab PO DAILY 06/17/25 06/17/25 History tablet duloxetine 30 mg capsule,delayed 30 mg PO DAILY 06/17/25 06/17/25 History release duloxetine 60 mg capsule,delayed 60 mg PO DAILY 06/17/25 06/17/25 History release estradiol 0.01% (0.1 mg/gram) 1 applic vaginal DAILY 06/17/25 06/17/25 History vaginal cream fesoterodine 8 mg tablet,extended 8 mg PO DAILY 06/17/25 06/17/25 History release 24 hr mirabegron 50 mg tablet,extended 50 mg PO DAILY 06/17/25 06/17/25 History release 24 hr (Myrbetriq) rasagiline 0.5 mg tablet 0.5 mg PO DAILY 06/17/25 06/17/25 History Past Med/Surg History Problem List (Updated 06/17/25 @ 17:46 by Loy Wall MD) Intertrochanteric fracture of right femur (Acute) Fall (Acute) Medical History Parkinson disease Urinary, incontinence, stress female Depression Hypothyroidism Surgical History History of cataract surgery left History of colonoscopy History of bilateral tubal ligation History of tooth extraction History of tonsillectomy Family History Other No family history of adverse response to anesthesia Social History Smoking Status: Former smoker Tobacco Type: Cigarettes Smoking End Date: 06/17/1985; Second Hand Exposure: No; Do You Dip or Chew Tobacco: No; Tobacco Cessation Education Requested by Patient: No Hx Alcohol Use: No Hx Substance Use: No Preferred Language: [place] Communication Ability: Effective 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 Physical Exam . * General: Alert and oriented, no acute distress * Constitutional: well-developed, well-nourished. * Respiratory: Normal respiratory effort, no distress * Gastrointestinal: No tenderness to palpation, no rigidity or guarding. * Skin: No rash or lesion. * Neurologic: Grossly normal * Musculoskeletal: Right leg shortened and externally rotated. Otherwise no obvious deformity or overlying skin changes to RLE. TTP right proximal thigh and anterior hip region, otherwise no tenderness of R thigh, knee, lower leg. Pain with log roll, otherwise ROM R hip not assessed. AROM foot/ankle intact. Sensation intact plantar/dorsal foot. Brisk capillary refill. Results & Data Results & Data Laboratory Results . 06/18/25 06/17/25 06/17/25 07:22 14:26 13:55 WBC 5.16 3.83 L RBC 3.28 L 3.78 L Hgb 10.4 L 11.9 L Hct 31.3 L 35.8 L MCV 95.4 94.7 MCH 31.7 31.5 MCHC 33.2 33.2 RDW Std Deviation 41.8 41.8 RDW Coeff of Asha 12.0 12.0 Plt Count 161 186 MPV 9.4 9.3 L Immature Gran % (Auto) 0.2 0.3 Neut % (Auto) 71.5 57.4 Lymph % (Auto) 17.6 30.0 [place] % (Auto) 10.3 9.1 Eos % (Auto) 0.2 2.9 Baso % (Auto) 0.2 0.3 Neut # (Auto) 3.69 2.20 Lymph # (Auto) 0.91 L 1.15 L [place] # (Auto) 0.53 0.35 Eos # (Auto) 0.01 0.11 Baso # (Auto) 0.01 0.01 Immature Gran # (Auto) 0.01 0.01 PT 10.8 INR 1.0 APTT 23 PTT Ratio 0.8 Sodium 142 139 Potassium 4.0 4.2 Chloride 105 105 Carbon Dioxide 29 30 Anion Gap 8 4 BUN 22 17 Creatinine 0.64 0.63 Est Cr Clr Drug Dosing 68.8 69.9 eGFR 92.68 93.03 BUN/Creatinine Ratio 34.4 H 27.0 H Glucose 91 90 Calcium 9.1 9.1 Magnesium 1.8 Total Bilirubin 0.5 0.4 AST 17 19 ALT 10 6 L Alkaline Phosphatase 61 71 Total Protein 6.0 6.3 Albumin 3.6 3.5 Globulin 2.4 L 2.8 Albumin/Globulin Ratio 1.5 1.3 25-OH Vitamin D Total 90.4 Urine Color Yellow Urine Appearance Clear Urine pH 7.5 Ur Specific [place] 1.009 Urine Protein Negative Urine Glucose (UA) Negative Urine Ketones Negative Urine Blood Negative Urine Nitrite Negative Urine Bilirubin Negative Urine Urobilinogen Negative Ur Leukocyte Esterase 3+ H Urine WBC (Auto) 6-10 H Urine RBC (Auto) 0-2 U Hyaline Cast (Auto) 0-2 U Epithel Cells (Auto) 0-2 Urine Bacteria (Auto) None Seen Urine Comment Diagnostic Findings . Hip/Pelvis X-Ray 06/17/25 13:39 SINGLE VIEW PELVIS; 2 VIEWS RIGHT HIP CLINICAL HISTORY: Fall with right hip injury. FINDINGS: An AP view of the pelvis is obtained with AP and crosstable lateral views of the right hip. No prior studies are available for comparison at the time of dictation. The skeletal structures are osteopenic. There is a mildly displaced intertrochanteric fracture of the right proximal femur. Overlying soft tissue edema is observed. No additional acute fracture is seen involving the left hip or the bony pelvis. There is moderate to advanced arthritic change and joint space narrowing seen in both hips. Lumbosacral spondylosis is partially imaged. Degenerative sclerosis is noted in the sacroiliac joints. IMPRESSION: Intertrochanteric fracture of the right proximal femur as above. Electronically signed by: Olaf Daley M.D. 06/17/2025 3:46 PM PG Care Time/CCT Total # of Minutes Spent Total Time Spent with Patient: Total time spent is greater than 50% in coordination of care (as documented) at patient's floor/unit and/or counseling patient: [place] [address] IN/OBS CONSULT LVL 5,80M Patient Type New Medical Decision Making High Complexity Diagnoses Intertrochanteric fracture of right femur S72.141A Encounter type: initial encounter Fracture alignment: displaced Fracture type: closed (1) Intertrochanteric fracture of right femur Encounter type: initial encounter Fracture alignment: displaced Fracture type: closed Qualified Code(s): S72.141A - Displaced intertrochanteric fracture of right femur, initial encounter for closed fracture
--- NOTE | 2025-06-18 09:31 | Hospitalist Progress Note ---
<Statement entered by Niles Lang, - 06/18/25 12:49> I have seen and examined the patient and have discussed the case with the advance practice provider. I have reviewed the advanced practitioner's documentation, and I agree with, and take responsibility for that plan of care. Patient states that her pain is adequately controlled. Understands the need for surgical intervention Medically maximized for anticipated orthopedic repair of hip fracture Further plan of care as outlined below I spent a total of 15 minutes coordinating, documenting, and providing care for this patient excluding time spent by another provider/QHP. Date of Service June 18, 2025 Assessment & Plan (1) Fall: (2) Intertrochanteric fracture of right femur: (3) Parkinson disease: (4) Hypothyroidism: Plan Patient is a 74y/o F with PMHx significant for hypothyroidism, Parkinson's disease and major depressive disorder who presented to the ED via EMS on 06/17/2025 with complaints of R hip pain s/p GLF and was found to have an intertrochanteric fracture of the R proximal femur. R proximal femur fracture s/p GLF Appreciate ortho consult. RCRI score 0, 0.5% risk of major cardiac event, okay to proceed with surgery. Tentative plan for OR today for fixation of R femur; preop ABX running. Will need PT/OT postoperatively. Parkinson's disease Pt is very active at baseline, attends workout classes 3-4x/wk. Follows with [email or web address]. Continue Azilect, carbidopa-levodopa. MDD Mood stable, continue Cymbalta and Prozac. Family history of hemophilia A Pt reports her brother and mother both had it, she was not tested. Pt reports her mother had bleeding issues after she broke her hip and that's how they discovered it. Pt denies any history of major bleeding issues. Will need close postoperative monitoring of Hgb. DVT Prophylaxis: SCDs only for now pending above surgical procedure Code Status: FULL CODE PCP: NITIN Handley Disposition: DC plans uncertain at this time pending postoperative PT/OT evaluations to determine appropriate disposition. Patient seen in collaboration with Dr. Lang. Please see addendum. I spent a total of 42 minutes coordinating, documenting, and providing care for this patient excluding time spent in the performance of separately billed services or time spent by another provider/QHP. This included personally reviewing all current laboratories and imaging studies, medical reconciliation, outpatient chart review and discussion with specialists. This chart was completed in part utilizing Speech Voice Recognition Software. Grammatical errors, random word insertions, pronoun errors, and incomplete sentences are an occasional consequence of this system due to software limitations, ambient noise, and hardware issues. Any formal questions or concerns about the content, text, or information contained within the body of this dictation should be directly addressed to the provider for clarification. Admission and Anticipated Discharge Date Admission Date: June 17, 2025 Subjective Patient seen and examined in room N376-1. Endorses ongoing right hip pain, unable to move RLE 2/2 pain. Denies any chest pain or SOB. Tentative plan for OR today for fixation of right femur. Review of Systems Review of Systems: At least ten systems reviewed and negative, except as noted in the subjective section. Physical Exam Physical Exam: General: Thin elderly F, NAD, laying down in bed, A&Ox3. HEENT: Normocephalic, atraumatic. External ear and nose normal, oropharynx normal. Respiratory: Normal respiratory effort, CTAB. Cardiovascular: Mildly tachycardic rate (HR 97bpm), regular rhythm. Abdomen/GI: Active bowel sounds, soft, nontender to palpation in all quadrants. Extremities/Musculoskeletal: RLE shortened and externally rotated, good peripheral pulses. + Parkinson's-related BUE tremors. Neurologic: No overt focal deficits, CN's II-XI not formally tested but appear grossly intact bilaterally. Results & Data Results & Data Vital Signs (Past 12 Hours) Vital Signs Temp Pulse Resp BP Pulse Ox O2 Del Method 06/18/25 07:05 36.8 C 93 H 18 128/81 94 Room Air 06/17/25 22:19 36.5 C 91 H 16 120/70 93 Room Air Laboratory Results Short CBC 06/17/25 06/18/25 Range/Units 13:55 07:22 WBC 3.83 L 5.16 (4.8-10.8) K/ul Hgb 11.9 L 10.4 L (12.0-16.0) g/dL Hct 35.8 L 31.3 L (37.0-47.0) % Plt Count 186 161 (130-400) K/uL BMP 06/17/25 06/18/25 13:55 07:22 Sodium 139 142 Potassium 4.2 4.0 Chloride 105 105 Carbon Dioxide 30 29 BUN 17 22 Creatinine 0.63 0.64 Glucose 90 91 Calcium 9.1 9.1 Liver Function 06/17/25 06/18/25 Range/Units 13:55 07:22 Total Bilirubin 0.4 0.5 (0.2-1.0) mg/dl AST 19 17 (13-39) U/L ALT 6 L 10 (7-52) U/L Alkaline Phosphatase 71 61 (34-104) U/L Albumin 3.5 3.6 (3.4-5.0) gm/dl Urine 06/17/25 Range/Units 14:26 Urine Color Yellow Urine Appearance Clear (Clear) Urine pH 7.5 (4.5-7.5) Ur Specific [place] 1.009 (1.000-1.030) Urine Protein Negative (Negative) Urine Glucose (UA) Negative (Negative) (1) Fall Encounter type: initial encounter Qualified Code(s): W19.XXXA - Unspecified fall, initial encounter (2) Intertrochanteric fracture of right femur Encounter type: initial encounter Fracture alignment: displaced Fracture type: closed Qualified Code(s): S72.141A - Displaced intertrochanteric fracture of right femur, initial encounter for closed fracture
[2025-06-18] MEDS: MIRABEGRON ER 25 MG TAB PO SCH (10:25)
[2025-06-18] MEDS: CHOLECALCIFEROL 25 MCG (1000 UNITS) TAB PO SCH (10:25)
[2025-06-18] MEDS: CARBIDOPA/LEVODOPA 25/100MG TAB PO SCH (10:25)
--- NOTE | 2025-06-18 13:56 | History & Physical Bridge Note ---
Date of Service June 18, 2025 History & Physical Bridge Note I have examined the patient, reviewed the History & Physical and in the interval since the performance of the History & Physical I have noted the following changes of clinical significance: no changes noted
--- NOTE | 2025-06-18 15:09 | Anesthesiology Consultation ---
Date of Service June 18, 2025 Assessment & Plan Chart Review Chart Review: Acceptable Risk for Surgery and Patient NOT seen in Pre Admission Testing Consults Requested none ASA ASA3 Proposed Anesthesia Anesthesia Type: MAC Spinal Risk / Benefits Reviewed With: PT / POA / Parent / Guardian, Accepts Plan and Informed Consent Obtained History Surgery Operation Date: 06/18/25 08:30 Proposed Procedures p Right Long Troch Nail - Chris Pedro MD Height/Weight Height: 5 ft 5 in Weight: 56.5 kg Allergies Allergy/AdvReac Type Severity Reaction Status Date / Time No Known Allergies Allergy Verified 06/17/25 16:06 Medications Home Medications Medication Instructions Recorded Confirmed Last Taken Juice Plus Dose 1 cap PO BID 02/25/23 06/17/25 06/17/25 aspirin 81 mg tablet,delayed 81 mg PO DAILY 02/25/23 06/17/25 06/17/25 release calcium 200 mg (as 3 tab PO DAILY 02/25/23 06/17/25 06/17/25 citrate)-vitamin D3 3.125 mcg (125 unit) tablet cholecalciferol (vitamin D3) 25 25 mcg PO QAM 02/25/23 06/17/25 06/17/25 mcg (1,000 unit) tablet (Vitamin D3) fluoxetine 20 mg tablet 20 mg PO QAM 02/25/23 06/17/25 06/17/25 fluoxetine 40 mg capsule 40 mg PO QAM 02/25/23 06/17/25 06/17/25 levothyroxine 50 mcg capsule 50 mcg PO QAM 02/25/23 06/17/25 06/17/25 carbidopa 25 mg-levodopa 100 mg 1 tab PO DAILY 06/17/25 06/17/25 06/17/25 tablet duloxetine 30 mg capsule,delayed 30 mg PO DAILY 06/17/25 06/17/25 06/16/25 release duloxetine 60 mg capsule,delayed 60 mg PO DAILY 06/17/25 06/17/25 06/17/25 release estradiol 0.01% (0.1 mg/gram) 1 applic vaginal DAILY 06/17/25 06/17/25 06/16/25 vaginal cream fesoterodine 8 mg tablet,extended 8 mg PO DAILY 06/17/25 06/17/25 06/17/25 release 24 hr mirabegron 50 mg tablet,extended 50 mg PO DAILY 06/17/25 06/17/25 06/16/25 release 24 hr (Myrbetriq) rasagiline 0.5 mg tablet 0.5 mg PO DAILY 06/17/25 06/17/25 06/16/25 Active Medications Generic Name Dose Route Start Last Admin Trade Name Freq PRN Reason Stop Dose Admin Carbidopa/Levodopa 1 tab 06/18/25 09:00 06/18/25 10:25 Carbidopa/Levodopa 25/100mg Tab PO 07/18/25 08:59 Not Given DAILY ENRRIQUE Duloxetine HCl 90 mg 06/18/25 09:00 06/18/25 10:25 Duloxetine Hcl 30 Mg Cap PO 07/18/25 08:59 Not Given DAILY ENRRIQUE Fluoxetine HCl 60 mg 06/18/25 09:00 06/18/25 10:25 Fluoxetine Hcl 20 Mg Cap PO 07/18/25 08:59 Not Given QAM ENRRIQUE Cefazolin Sodium 2,000 mg in 15 mls @ 3.75 mls/min 06/18/25 06:00 06/18/25 05:57 Ancef 2000mg IV 06/19/25 05:59 3.75 mls/min PREOP ENRRIQUE Administration Protocol Lactated Ringer's 1,000 mls @ 15 mls/hr 06/18/25 15:15 06/18/25 15:19 Lr IV 06/21/25 15:14 15 mls/hr .Q24H ENRRIQUE Administration Levothyroxine Sodium 50 mcg 06/18/25 06:30 06/18/25 05:56 Levothyroxine Sodium 50 Mcg Tablet PO 07/18/25 06:29 50 mcg DAILYBB ENRRIQUE Administration Melatonin 3 mg 06/17/25 19:48 06/17/25 20:21 Melatonin 3 Mg Tab PO 07/17/25 19:47 3 mg HS PRN Administration Sleep Mirabegron 50 mg 06/18/25 09:00 06/18/25 10:25 Mirabegron Er 25 Mg Tab PO 07/18/25 08:59 Not Given DAILY ENRRIQUE Morphine Sulfate 4 mg 06/17/25 18:16 06/18/25 14:02 Morphine Sulfate 4 Mg/Ml 1 Ml Carp\Vial IV 07/01/25 18:15 4 mg Q3H PRN Administration Pain (6,7,8,9,10) Oxycodone HCl 5 mg 06/17/25 18:16 06/17/25 19:29 Oxycodone Hcl Ir 5 Mg Tab (Immediate Release) PO 07/01/25 18:15 5 mg Q4H PRN Administration MODERATE Pain (4,5,6) & Pre PT Rasagiline 0.5 mg 06/18/25 09:00 06/18/25 10:25 Rasagiline Mesylate 0.5 Mg Tab PO 07/18/25 08:59 Not Given DAILY ENRRIQUE Senna/Docusate Sodium 2 tab 06/17/25 21:00 06/17/25 20:21 Docusate Sodium/Senna 50/8.6mg Tab PO 07/17/25 20:59 2 tab HS ENRRIQUE Administration Vitamin D 25 mcg 06/18/25 09:00 06/18/25 10:25 Cholecalciferol 25 Mcg (1000 Units) Tab PO 07/18/25 08:59 Not Given QAM ENRRIQUE Past Medical History Medical History Parkinson disease Urinary, incontinence, stress female Depression Hypothyroidism Exercise / Class Metabolic Activity II 4-5 Yardwork/Stairs/Walk up hill Past Family History Family History Other No family history of adverse response to anesthesia Past Surgical History Surgical History History of cataract surgery left History of colonoscopy History of bilateral tubal ligation History of tooth extraction History of tonsillectomy Past Anesthesia History No Hx of Anesthesia Complications and No Family Hx of Anesthesia Complications History of PONV No Hx of PONV and No Hx of Motion Sickness Social History Smoking Status: Former smoker tobacco type: cigarettes Do You Dip or Chew Tobacco: No Smoking End Date: 06/17/1985 Hx Alcohol Use: No Hx Substance Use: No substance use type: does not use Physical Exam Vital Signs Last Vital Signs Temp 37 C 06/18/25 14:55 Pulse 106 H 06/18/25 14:55 Resp 18 06/18/25 14:55 BP 140/77 06/18/25 14:55 Pulse Ox 95 06/18/25 14:55 O2 Del Method Room Air 06/18/25 14:55 ENMT Mouth: + dentures (full upper plate, partial lower) Thyromental Distance: > or= 3.5 Finger Breadths Mallampati Class: II Neck normal visual inspection Respiratory normal respiratory effort Auscultation: lungs clear to auscultation bilaterally Cardiovascular Rate/Rhythm: regular rate and regular rhythm Neurologic resting tremor Psychiatric Orientation: alert Testing Laboratory Results 06/18/25 07:22 06/18/25 07:22 PT 10.8 Seconds (9.0-12.0) 06/17/25 13:55 INR 1.0 (0.9-1.1) 06/17/25 13:55 APTT 23 Seconds (21-31) 06/17/25 13:55 Urine Color Yellow 06/17/25 14:26 Urine Appearance Clear (Clear) 06/17/25 14:26 Urine pH 7.5 (4.5-7.5) 06/17/25 14:26 Ur Specific [place] 1.009 (1.000-1.030) 06/17/25 14:26 Urine Protein Negative (Negative) 06/17/25 14:26 Urine Glucose (UA) Negative (Negative) 06/17/25 14:26 Urine Ketones Negative (Negative) 06/17/25 14:26 Urine Nitrite Negative (Negative) 06/17/25 14:26 Ur Leukocyte Esterase 3+ (Negative) H 06/17/25 14:26 Urine WBC (Auto) 6-10 /hpf (0-5) H 06/17/25 14:26 Urine RBC (Auto) 0-2 /hpf (0-2) 06/17/25 14:26 U Hyaline Cast (Auto) 0-2 /lpf (0-2) 06/17/25 14:26 U Epithel Cells (Auto) 0-2 /hpf (0-2) 06/17/25 14:26 Urine Bacteria (Auto) None Seen (None Seen) 06/17/25 14:26 Blood Type A Positive 06/18/25 09:04 Antibody Screen NEGATIVE 06/18/25 09:04
[2025-06-18] MEDS: LACTATED RINGER'S 1,000 ML IV SCH (15:19)
[2025-06-18] MEDS ORDERED: ONDANSETRON INJ 2 MG/ML 2 ML VIAL IV PRN (15:24)
[2025-06-18] MEDS ORDERED: LIDOCAINE 2% 2 ML VIAL/AMP(20MG/ML) INFIL ONE (15:24)
[2025-06-18] MEDS ORDERED: MIDAZOLAM HCL 1 MG/ML 2ML VIAL ONE (15:24)
[2025-06-18] MEDS ORDERED: PROPOFOL IV EMULSION 10 MG/ML 20 ML VIAL IV ONE ×3 (15:24→17:28)
[2025-06-18] MEDS ORDERED: ONDANSETRON INJ 2 MG/ML 2 ML VIAL ONE (15:24)
[2025-06-18] MEDS ORDERED: ATROPINE SULFATE 0.1 MG/ML 10ML SYR IV PRN (15:24)
[2025-06-18] MEDS: TRANEXAMIC ACID 100 MG/ML 10 ML VIAL IV ONE (16:46)
[2025-06-18] MEDS ORDERED: PHENYLEPHRINE 100MCG/ML 5ML SYR ONE (16:49)
[2025-06-18] MEDS: TRANEXAMIC ACID / 0.7% NACL 1000MG/100ML BAG IV ONE ×2 (16:55→18:18)
[2025-06-18] MEDS: BUPIVACAINE/EPINEPHRINE 0.5% MPF 1:200,000 30 ML VIAL ONE (17:24)
--- NOTE | 2025-06-18 17:55 | Operative Report ---
PG Post Operative Report Pre & Post Diagnosis Operation Date: 06/18/25 08:30 Pre-Op Diagnosis: Right Intertrochanteric Femur Fracture Post-Op Diagnosis: Right Intertrochanteric Femur Fracture I identified the patient and participated in the time-out.: Yes Procedure Operation Date: 06/18/25 08:30 Actual Procedures p Right Long Troch Nail(Right) - Chris Pedro MD Surgeon Chris Pedro MD Spa Associate Wilver Edwards PA-C Estimated Blood Loss 100 Findings Consistent with Post-Op Diagnosis Specimens None Anesthesia Type Spinal MAC Complications none Disposition Accompanied Patient To Recovery: No Indications The patient is 74-year-old female with some underlying Parkinson disease who sustained mechanical fall yesterday. She had acute onset of pain and could not ambulate afterwards. She was seen in the emergency room x-rays were right intertrochanteric hip fracture. See was admitted by the hospitalist service, medically optimized and indicated for surgical repair. The patient does have arthritis radiographically on x-ray but she complained of no hip or arthritic hip pain preoperatively. Therefore we elected to proceed with intramedullary nailing versus arthroplasty procedure. Description of Procedure Operative implants consists of: 1 Synthes right 340 mm x 11 mm long trochanteric nail. 2. Synthes 85 mm helical blade. 3. 44 mm x 5.0 distal interlocking screw. The patient was taken to the op room, identified, placed on the operating table in the supine position. All contact areas were appropriately padded. IV antibiotics were provided by the anesthesia team. A spinal anesthetic was implemented. The patient was then transferred to the fracture table. The right leg was placed in boot traction the left leg was placed in a well-leg meza. I applied some longitudinal traction to the foot and internally rotated the right foot so the kneecap pointed to the ceiling. X-ray was brought in. The fracture was anatomically aligned. The right hip and leg were then scrubbed with Hibiclens, prepped with ChloraPrep and draped in usual sterile fashion. A curvilinear incision was made just proximal to the tip of the greater trochanter for distance of about 5 cm. Sharp dissection Through subcutaneous tissue down to level of the gluteal fascia. The gluteal fascia incised longitudinally in line with the skin incision. I then placed a guidewire just on the lateral tip of the trochanter and in line with the IM canal on the AP and lateral planes. This was advanced down the IM canal. This was verified fluoroscopically and then overreamed with a 15 mm reamer. This guidewire was then exchanged for the ball-tipped guidewire which is advanced on the femur. We measured for nail length and a 340 mm nail was selected. I then overreamed the guidewire with a 12.0 mm reamer. We then placed a right 11 mm x 340 mm long trochanteric nail over the guidewire to remove the guidewire. We tapped into position. A lateral aiming arm was placed and advanced to the lateral aspect of the femur. A guidewire was placed in the central aspect of femoral head neck on the AP and lateral planes. The length was measured and 85 mm helical blade was selected. The cortical drill was used to breach the cortex and a triple reamer was set at 85 and overreamed the guidewire. An 85 mm helical blade was then placed. It was tapped into position. The proximal setscrew was tightened and then backed off a quarter of a turn. Some final x-rays were obtained. Attention jointer distal interlocking. Using the perfect [place] technique a distal interlocking screw was placed in the dynamic hole. Stab incision was made. The drill was used and a 40 field millimeter by 5.0 mm distal interlocking screw was placed. Some final x-rays were obtained. Attention drawn toward closing. All wounds were irrigated extensively. I injected locally with 30 cc of half percent Marcaine with epinephrine. The gluteal fascia was then closed with #1 Vicryl suture in a running fashion for the subcutaneous tissues of the incisions were then closed in 2 layers with a deep layer #1 Vicryl suture and subcutaneous tissues with 2-0 Dexon suture in a buried interrupted fashion. Skin was closed skin flavio. Leg was then cleaned and dried and a sterile dressing with Xeroform, 4 fours, ABD pad and Medipore tape was applied. The patient was then taken off the fracture table and transported to the recovery room in stable condition. Patient tolerated procedure well and no complications. Wilver Edwards, my physician temporary administrative assistant, was present for the entire procedure. His assistance was required for proper patient positioning, prepping and draping, surgical exposure, retraction, performed the technical details of the operation, placement of the implants, closure of the incision site, and placement of the postoperative sterile bandage. I attest to the content of the Intraoperative Record and any orders documented therein. Any exceptions are noted below.
--- NOTE | 2025-06-18 19:06 | Anesthesiology Progress Note ---
Date of Service June 18, 2025 Anesthesia Post Procedure Vital Signs Vital Signs: Temp Pulse Pulse Resp BP Pulse Ox O2 Del Method 06/18/25 18:34 36.3 C L 93 H 18 126/75 95 Room Air 06/18/25 18:20 100 H 14 120/77 94 Room Air 06/18/25 18:10 36.3 C L 103 H 18 137/86 92 Room Air 06/18/25 18:00 101 H 16 121/75 99 Oxymask 06/18/25 17:50 98 H 21 120/59 L 100 Oxymask 06/18/25 17:41 36.3 C L 100 H 16 92/75 L 100 Oxymask 06/18/25 14:55 37 C 106 H 18 140/77 95 Room Air 06/18/25 10:45 Room Air 06/18/25 07:05 36.8 C 93 H 18 128/81 94 Room Air 06/17/25 22:19 36.5 C 91 H 16 120/70 93 Room Air 06/17/25 20:35 Room Air O2 Flow Rate 06/18/25 18:34 06/18/25 18:20 06/18/25 18:10 06/18/25 18:00 10 06/18/25 17:50 10 06/18/25 17:41 10 06/18/25 14:55 06/18/25 10:45 06/18/25 07:05 06/17/25 22:19 06/17/25 20:35 Pain Intensity Right Hip: Pain Intensity: 5 Transfer of Care Handoff Completed per policy Notes Mental Status: alert / awake / arousable Patient Amnestic to Procedure: Yes Nausea / Vomiting: adequately controlled Pain: adequately controlled Airway Patency, RR, SpO2: stable & adequate BP & HR: stable & adequate Hydration State: stable & adequate Neuraxial Anesthesia: was administered and sensory block is resolving Anesthetic Complications: no major complications apparent and Pt Satisfied with anesthetic care
[2025-06-18] MEDS: ASPIRIN 81 MG ECTAB PO SCH (20:06)
[2025-06-18] MEDS ORDERED: Nursing to Pharmacy Communication SCH (21:45)
[2025-06-19 07:43] LABS: Hematocrit (blood only) 28.1 % (37.0-47.0); Hemoglobin 9.4 g/dL (12.0-16.0); Immature Granulocytes # (auto) 0.03 K/uL (0.01-0.20); Immature Granulocytes % (auto) 0.4 %; Mean Corpuscular Hemoglobin 31.4 pg (25.0-34.0); Mean Corpuscular Volume 94.0 fL (80.0-100.0); Platelet Count 134 K/uL (130-400); RDW Standard Deviation 42.5 fL (36.4-46.3); Red Blood Count 2.99 M/uL (4.20-5.40); White Blood Count 7.81 K/ul (4.8-10.8)
[2025-06-19 08:01] LABS: Anion Gap 7.0 (3-11); Blood Urea Nitrogen 26.0 mg/dl (6-23); Calcium 8.9 mg/dl (8.6-10.3); Carbon Dioxide 28.0 mmol/L (21-32); Chloride 104.0 mmol/L (98-107); Creatinine Clr Calc Pharmacy 78.6 ml/min; Glucose 136.0 mg/dl (70-99(Fasting)); Potassium 3.8 mmol/L (3.5-5.1); Sodium 139.0 mmol/L (136-145)
--- NOTE | 2025-06-19 09:25 | Orthopedic Progress Note ---
Date of Service June 19, 2025 Assessment & Plan (1) Intertrochanteric fracture of right femur: * Continue Current Treatment * S/p right TFN * Weight bearing status: WBAT * Daily treatment: Physical Therapy/ Occupational Therapy per protocol * Pain control * Continue to monitor for ABLA * DVT prophylaxis, ok to resume from ortho standpoint * Disposition: TBD * Office/hospital f/u 2 weeks for progress check and staple/suture removal * Remainder care per primary team Subjective .Active Problems: S/p right TFN POD 1 74 y/o female s/p right TFN. Doing well overall, pain managed and improved function. Denies fever/chills, chest pain/SOB, nausea/vomiting. Otherwise no complaints. Review of Systems All systems reviewed & are unremarkable except as noted in HPI & below. Physical Exam . * General: Alert and oriented, no acute distress * Constitutional: well-developed, well-nourished. * Respiratory: Normal respiratory effort, no distress * Gastrointestinal: No tenderness to palpation, no rigidity or guarding. * Skin: No rash or lesion. * Neurologic: Grossly normal * Musculoskeletal: Right hip surgical dressing CDI, not removed for exam. Otherwise no obvious deformity or overlying skin changes. Diffuse TTP proximal thigh and hip region. Otherwise no specific tenderness of distal thigh, lower leg, foot/ankle. AROM hip flexion intact. AROM foot/ankle intact. Sensation intact plantar/dorsal foot. Brisk capillary refill. Results & Data Results & Data Laboratory Results . Diagnostic Findings . PG Care Time/CCT Total # of Minutes Spent Total Time Spent with Patient: Total time spent is greater than 50% in coordination of care (as documented) at patient's floor/unit and/or counseling patient: Coding Level of Care Code 22091 Post Operative Follow-Up Diagnoses Intertrochanteric fracture of right femur S72.141A Encounter type: initial encounter Fracture alignment: displaced Fracture type: closed (1) Intertrochanteric fracture of right femur Encounter type: initial encounter Fracture alignment: displaced Fracture type: closed Qualified Code(s): S72.141A - Displaced intertrochanteric fracture of right femur, initial encounter for closed fracture
[2025-06-19] MEDS: ONDANSETRON INJ 2 MG/ML 2 ML VIAL IV PRN (09:34)
[2025-06-19 09:42] LABS: Prealbumin 13.0 mg/dl (20-40)
--- NOTE | 2025-06-19 09:53 | Fluoroscopy Report ---
FL femur RT 2V CLINICAL HISTORY: RIGHT LONG TROCH NAIL COMPARISON STUDY: 06/17/2025 FLUOROSCOPY TIME: 73 seconds FLUOROSCOPY IMAGES: 5 EXPOSURE DOSE: 10 mGy FINDINGS: Fluoroscopy was provided for right femoral gamma nail. IMPRESSION: Intraoperative fluoroscopy. ACT 112: Negative or not required by law. Electronically signed by: Nathan Howell M.D. 06/19/2025 9:52 AM
--- NOTE | 2025-06-19 13:37 | Hospitalist Progress Note ---
Date of Service June 19, 2025 Assessment & Plan (1) Fall: (2) Intertrochanteric fracture of right femur: (3) Parkinson disease: (4) Hypothyroidism: Plan Patient is a 74y/o F with PMHx significant for hypothyroidism, Parkinson's disease and major depressive disorder who presented to the ED via EMS on 06/17/2025 with complaints of R hip pain s/p GLF and was found to have an intertrochanteric fracture of the R proximal femur. R proximal femur fracture s/p GLF S/P R TFN 06/18/25 EBL WBAT, PT/OT, pain control, wound care continue to monitor hgb for abla, hgb 9.4 today Acute blood loss anemia pre op hgb 11.9, down to 9.4 today suspect 2/2 trauma from fall, surgery and dilutional component as well repeat cbc in a.m. Parkinson's disease Pt is very active at baseline, attends workout classes 3-4x/wk. Follows with [facility] neuro. Continue Azilect, carbidopa-levodopa. MDD Mood stable, continue Cymbalta and Prozac. Family history of hemophilia A Pt reports her brother and mother both had it, she was not tested. Pt reports her mother had bleeding issues after she broke her hip and that's how they discovered it. Pt denies any history of major bleeding issues. Will need close postoperative monitoring of Hgb. DVT Prophylaxis: SCDs and ASA BID Code Status: FULL CODE PCP: NITIN Handley Disposition: [facility] when medically stable, suspect as early as tomorrow if hgb stabilizes Patient seen in collaboration with Dr. Beebe Please see addendum. I spent a total of 45 minutes coordinating, documenting, and providing care for this patient excluding time spent in the performance of separately billed services or time spent by another provider/QHP. This included personally reviewing all current laboratories and imaging studies, medical reconciliation, outpatient chart review and discussion with specialists. Admission and Anticipated Discharge Date Admission Date: June 17, 2025 Supervising Physician Co-Signing Physician Notes Pt seen and examined by me, care coordinated w/ Ernesto Epperson PA-C, pls refer to her note above for further detail. Pt seen sitting in her chair today, worked w/ PT - discussed w/ PT - recommending rehab. Pt denies any fever, chills, chest pain, shortness of breath, abd. pain. Says her leg pain is well controlled as long as she is not moving too much. She thinks she had surgery 2 days ago. Dressings clean, dry intact. Lungs CTAB, pt mildly tachycardic. Hgb down to 9.4. Pt is on ASA BID for DVT ppx. Orthopedics following. Cont. to monitor closely. MD Abiel Subjective Pt was seen in room 376-1. F/U fixation of R hip. She is sitting up in bedside chair. She has no pain at rest, but was painful getting to the chair. Denies f/c/s, chest pain, sob, v/d. She feels nauseated. She has not had a BM in 2 days which is normal for her. Overall poor appetite. Review of Systems Review of Systems: All systems reviewed & are unremarkable except as noted in HPI & below and All systems reviewed & are unremarkable except as noted in Subjective Physical Exam Physical Exam: General: - Alert: [Yes] - Oriented: [Yes] - GCS 15: [Yes] HEENT: - No pain/tenderness. - No lacerations/abrasions - No numbness/tingling - PERLAA. Normal Visual Acuity. No visual field cuts. No nystagmus. No contact lenses. Normal hearing. No relative afferent pupillary defect. No facial asym metry. Normal palatal elevation, uvula midline. Midline tongue protrusion. Shoulder shrug with 5/5 strength bilaterally. - Mucous membranes moist Neck: - Midline Tenderness: No - Cleared C-Spine: Yes Thorax: - Pain/Tenderness: None - Lacerations/Abrasions: None - Swelling/Ecchymosis: None - Air/Bony Crepitus: None Cardiopulmonary: - Regular Rate and Rhythm. No murmurs, rubs or gallops. - Breath sounds CTAB. No wheezes, rales, or rhonchi. - Symmetrical Chest Rise Abdomen - Pain/Tenderness: None - Lacerations/Abrasions: None - No abdominal distension - Abdominal rigidity/guarding: None - Bowel Sounds: Present, normal - Pelvis stable Back/Spine - Lacerations/Abrasions: None- Swelling/Ecchymosis: None - Pain/Tenderness: None - Step-offs: None Extremities: - RUE: No deformity. No lacerations/abrasions. No swelling/ecchymosis. No pain/tenderness. Full active and passive range of motion. Dietitian Assistant strength, elbow flexion/extension, shoulder flexion/extension/abduction/adduction/external rotation/internal rotation intact with 5/5 strength. Sensation intact to soft touch without deficit. Radial pulse intact, cap refill in the thumb <2 seconds. Extremity warm and dry. - RLE: +Shortened and externally rotated. No lacerations/abrasions. +lateral swelling and pain. ROM not attempted due to recent surgery, hip dressing CDI. , sensation intact, Dietitian Assistant strength, elbow flexion/extension, shoulder flexion/extension/abduction/adduction/external rotation/internal rotation intact with 5/5 strength. Sensation intact to soft touch without deficit. Radial pulse intact, cap refill in the thumb <2 seconds. Extremity warm and dry. - LLE: No deformity. No lacerations/abrasions. No swelling/ecchymosis. No pain/tenderness. Full active and passive range of motion. Hip flexion/extension, knee flexion/extension, ankle dorsiflexion/plantarflexion with 5/5 strength. Sensation intact to soft touch without deficit. PT pulse intact to palpation, cap refill in the hallux <2 seconds. Extremity warm and dry. - RLE: Shortened and externally rotated. +swelling/pain laterally and with movement. No pain/tenderness. strength not tested due to recent surgical fixation. Sensation intact to soft touch without deficit. PT pulse intact to palpation, cap refill in the hallux <2 seconds. Extremity warm and dry. Mental status Adequate for Full Exam: Yes, C spine cleared clincally as there is not indication for cervical injury or trauma and no indication for further imaging Results & Data Results & Data Vital Signs (Past 12 Hours) Vital Signs Temp Pulse Resp BP Pulse Ox O2 Del Method 06/19/25 11:48 36.7 C 95 H 14 111/68 95 Room Air 06/19/25 07:29 36.9 C 94 H 14 113/69 94 Room Air 06/19/25 03:44 36.7 C 97 H 18 118/71 97 Room Air Laboratory Results I have independently reviewed and interpreted patient's cbc, bmp, vitamin d, pre alb Medications Administered Current Inpatient Medications Al Hydrox/Mg Hydrox/Simethicone (Aluminum/Magnesium Susp 30 Ml Udc) 30 ml PO Q6H PRN PRN Reason: Dyspepsia Stop: 07/17/25 18:15 Aspirin (Aspirin 81 Mg Ectab) 81 mg PO BID [facility] Stop: 07/18/25 20:59 Last Admin: 06/19/25 08:01 Dose: 81 mg Bisacodyl (Bisacodyl 10 Mg Supp) 10 mg MN DAILY PRN PRN Reason: Constipation Stop: 07/17/25 18:15 Carbidopa/Levodopa (Carbidopa/Levodopa 25/100mg Tab) 1 tab PO DAILY [facility] Stop: 07/18/25 08:59 Last Admin: 06/19/25 08:02 Dose: 1 tab Duloxetine HCl (Duloxetine Hcl 30 Mg Cap) 90 mg PO DAILY [facility] Stop: 07/18/25 08:59 Last Admin: 06/19/25 08:03 Dose: 90 mg Fluoxetine HCl (Fluoxetine Hcl 20 Mg Cap) 60 mg PO QAM [facility] Stop: 07/18/25 08:59 Last Admin: 06/19/25 08:04 Dose: 60 mg Levothyroxine Sodium (Levothyroxine Sodium 50 Mcg Tablet) 50 mcg PO DAILYBB [facility] Stop: 07/18/25 06:29 Last Admin: 06/19/25 05:22 Dose: 50 mcg Magnesium Hydroxide (Magnesium Hydroxide Susp 30 Ml Udc) 30 ml PO Q6H PRN PRN Reason: Constipation Stop: 07/17/25 18:15 Melatonin (Melatonin 3 Mg Tab) 3 mg PO HS PRN PRN Reason: Sleep Stop: 07/17/25 19:47 Last Admin: 06/17/25 20:21 Dose: 3 mg Miscellaneous (Order Awaiting Action: Rasagiline 0.5mg) 1 each N/A QS [facility] Stop: 07/19/25 15:59 Morphine Sulfate (Morphine Sulfate 4 Mg/Ml 1 Ml Carp\Vial) 4 mg IV Q3H PRN PRN Reason: Pain (6,7,8,9,10) Stop: 07/01/25 18:15 Last Admin: 06/18/25 14:02 Dose: 4 mg Naloxone HCl (Naloxone Hcl 0.4 Mg/1 Ml Vial/Carp) 0.1 mg IV UD PRN PRN Reason: Opiate Overdose Stop: 07/17/25 18:15 Ondansetron HCl (Ondansetron Inj 2 Mg/Ml 2 Ml Vial) 4 mg IV Q6H PRN PRN Reason: Nausea Stop: 07/17/25 18:15 Last Admin: 06/19/25 09:34 Dose: 4 mg Oxycodone HCl (Oxycodone Hcl Ir 5 Mg Tab (Immediate Release)) 5 mg PO Q4H PRN PRN Reason: MODERATE Pain (4,5,6) & Pre PT Stop: 07/01/25 18:15 Last Admin: 06/19/25 05:22 Dose: 5 mg Polyethylene Glycol (Polyethylene (Miralax) 17 Gm Pack) 17 gm PO DAILY PRN PRN Reason: Constipation Stop: 07/17/25 18:15 Polyethylene Glycol (Polyethylene (Miralax) 17 Gm Pack) 17 gm PO Q6 [facility] Stop: 07/20/25 17:59 Senna/Docusate Sodium (Docusate Sodium/Senna 50/8.6mg Tab) 2 tab PO HS [facility] Stop: 07/17/25 20:59 Last Admin: 06/18/25 20:06 Dose: 2 tab Vibegron (Vibegron 75 Mg Tab) 75 mg PO DAILY [facility] Stop: 07/19/25 12:14 Vitamin D (Cholecalciferol 25 Mcg (1000 Units) Tab) 25 mcg PO QAM [facility] Stop: 07/18/25 08:59 Last Admin: 06/19/25 08:02 Dose: 25 mcg (1) Fall Encounter type: initial encounter Qualified Code(s): W19.XXXA - Unspecified fall, initial encounter (2) Intertrochanteric fracture of right femur Encounter type: initial encounter Fracture alignment: displaced Fracture type: closed Qualified Code(s): S72.141A - Displaced intertrochanteric fracture of right femur, initial encounter for closed fracture
[2025-06-19] MEDS: VIBEGRON 75 MG TAB PO SCH (13:39)
[2025-06-19] MEDS: PNEUMOCOCCAL VACCINE (PCV20) 20-VAL CONJ-DIP CRM/PF 0.5 ML SYR IM ONE (17:38)
[2025-06-19] MEDS: ACETAMINOPHEN 325 MG TAB PO SCH (17:41)
[2025-06-20 07:21] LABS: Hematocrit (blood only) 25.8 % (37.0-47.0); Hemoglobin 8.9 g/dL (12.0-16.0); Immature Granulocytes # (auto) 0.07 K/uL (0.01-0.20); Immature Granulocytes % (auto) 1.2 %; Mean Corpuscular Hemoglobin 32.2 pg (25.0-34.0); Mean Corpuscular Volume 93.5 fL (80.0-100.0); Platelet Count 128 K/uL (130-400); RDW Standard Deviation 41.1 fL (36.4-46.3); Red Blood Count 2.76 M/uL (4.20-5.40); White Blood Count 5.99 K/ul (4.8-10.8)
[2025-06-20 07:49] LABS: Anion Gap 5.0 (3-11); Blood Urea Nitrogen 28.0 mg/dl (6-23); Calcium 8.8 mg/dl (8.6-10.3); Carbon Dioxide 31.0 mmol/L (21-32); Chloride 104.0 mmol/L (98-107); Creatinine Clr Calc Pharmacy 81.5 ml/min; Glucose 88.0 mg/dl (70-99(Fasting)); Magnesium 1.8 mg/dl (1.7-2.4); Potassium 4.1 mmol/L (3.5-5.1); Sodium 140.0 mmol/L (136-145)
--- NOTE | 2025-06-20 08:44 | Orthopedic Progress Note ---
Date of Service June 20, 2025 Assessment & Plan (1) Intertrochanteric fracture of right femur: * Continue Current Treatment * S/p right TFN * Weight bearing status: WBAT * Daily treatment: Physical Therapy/ Occupational Therapy per protocol * Pain control * Continue to monitor for ABLA * DVT prophylaxis, ok to resume from ortho standpoint * Disposition: rehab * Office/hospital f/u 2 weeks for progress check and staple/suture removal * Remainder care per primary team Subjective Active Problems: S/p right TFN POD 2 74 y/o female s/p right TFN. Doing well overall, pain managed and improved function. Denies fever/chills, chest pain/SOB, nausea/vomiting. Otherwise no complaints. Is eagerly awaiting rehab. Review of Systems All systems reviewed & are unremarkable except as noted in HPI & below. Physical Exam * Musculoskeletal: Right hip surgical dressing CDI, not removed for exam. Otherwise no obvious deformity or overlying skin changes. Diffuse TTP proximal thigh and hip region. Otherwise no specific tenderness of distal thigh, lower leg, foot/ankle. AROM hip flexion intact. AROM foot/ankle intact. Sensation intact plantar/dorsal foot. Brisk capillary refill. Results & Data Results & Data Laboratory Results . Diagnostic Findings . PG Care Time/CCT Total # of Minutes Spent Total Time Spent with Patient: Total time spent is greater than 50% in coordination of care (as documented) at patient's floor/unit and/or counseling patient: Coding Level of Care Code 51985 Post Operative Follow-Up Diagnoses Intertrochanteric fracture of right femur S72.141A Encounter type: initial encounter Fracture alignment: displaced Fracture type: closed (1) Intertrochanteric fracture of right femur Encounter type: initial encounter Fracture alignment: displaced Fracture type: closed Qualified Code(s): S72.141A - Displaced intertrochanteric fracture of right femur, initial encounter for closed fracture
--- NOTE | 2025-06-20 09:44 | Discharge Summary ---
Discharge Summary Date of Service June 20, 2025 Principal Dx & Hospital Course #1 = Principal Diagnosis (1) Fall: (2) Intertrochanteric fracture of right femur: (3) Parkinson disease: (4) Hypothyroidism: Plan Patient is a 74y/o F with PMHx significant for hypothyroidism, Parkinson's disease and major depressive disorder who presented to the ED via EMS on 06/17/2025 with complaints of R hip pain s/p GLF and was found to have an intertrochanteric fracture of the R proximal femur.Patient fell while exercising at the gym. She fell onto her right side which is when she sustained her fracture. In ED patient was found to have a right intertrochanteric fracture of the proximal femur. Her hemoglobin on day of admission was 11.9. She was seen and evaluated by orthopedics and underwent a right long trochanteric nail on 06/18/2025 with an EBL of 100 mL. She tolerated the procedure well. On day of discharge her hemoglobin at night. She initially had a. She has been voiding spontaneously. She has not yet moved her bowels since admission. She is on a scheduled bowel regimen of MiraLAX and senna S. Pt does suffer from Parkinson disease at baseline and she is maintained on her carbidopa levodopa and Azilect. On day of discharge patient was medically stable, tolerating diet well spontaneously. [facility] and will need close monitoring of hemoglobin. She was placed on aspirin 81 mg twice daily for DVT prophylaxis per orthopedics. Notes For Next Care Provider Please check daily CBC until hemoglobin stabilizes. Hemoglobin was 11.9 on admission and on day of discharge is 8.9. Recommend to continue boost supplements twice daily. Please ensure patient has PCP follow-up upon discharge. Medication Changes From Visit You were started on new medications as a result of your surgery. It is recommended that you increase your ASA 81mg to twice daily. Please discuss with your orthopedic surgeon when you can reduce it back to once daily. You may take oxycodone 5mg every 6hr as needed for severe pain. It is recommended you take 650mg of Tylenol every 6 hours consistently to help with pain control. For bowel regimen please take Miralax 17g by mouth twice daily along with Senna- S, 2 tablets at bedtime. Please continue all other medications. Admission HPI Per Admitting Provider This is a 74-year-old female who has significant past medical history of hypothyroidism, Parkinson disease & major depressive disorder who presents to ED after ground level fall prior to arrival. She states she was at the gym doing a work out class around noon when she went to step up and fell to her Right side. She immediately had pain and was unable to get up. She denies LOC or striking her head. Her brother and sister in law were at bedside. She states she goes to the gym and does a work out class for 30 min 3-4x a week. She is very active. She denies any chest pain or sob with exertion during these activities. She denies recent illness, f/c/s, n/v/d, abd pain. She has been passing urine and stool w/o difficulty. She denies dysuria, increased urg/freq with urination. She denies being on blood thinners other than a daily baby aspirin. Admission Exam Per Admitting Provider constitutional: thin, F, appears state age, vitals as above, NAD, sitting up in bed, pleasant, conversing easily Head: Normocephalic, Atraumatic Eyes: conjunctivae normal, anicteric sclerae ENMT: external ear and nose normal, oropharynx normal Neck: trachea midline, no thyromegaly normal visual inspection Respiratory: CTAB, no W/R/R, normal inspection, no accessory muscle use Cardiovascular: RRR, no murmur, no edema Chest: normal inspection of chest Abdomen: S, NT, ND, +BS x 4 Musculoskeletal: no cyanosis or clubbing, RLE shortened and foot externally rotated, good peripheral pulses +2 Skin: no rashes, warm and dry normal turgor Neurologic: no face palsy, no dysarthria CN's II-XI intact bilaterally and moves all extremities Psychiatric: A+Ox3, euthymic affect Discharge Exam Gen: thin, petite, F NAD, A&O x3 HEENT: Normocephalic, atraumatic, conjunctivae moist, sclerae anicteric, mucous membranes moist. Lung: Clear to Auscultation bilaterally, no wheezes/rales/rhonchi Heart: Regular rate, regular rhythm, no murmurs, rubs, or gallops Abdomen: Soft, NT, ND +BS x 4 Extremities: No edema Skin: Warm, no rash, negative turgor. R upper lateral thigh dressing CDI Updated Medication List Medication Instructions Recorded Confirmed Type Juice Plus Dose 1 cap PO BID 02/25/23 06/17/25 History calcium 200 mg (as 3 tab PO DAILY 02/25/23 06/17/25 History citrate)-vitamin D3 3.125 mcg (125 unit) tablet cholecalciferol (vitamin D3) 25 25 mcg PO QAM 02/25/23 06/17/25 History mcg (1,000 unit) tablet (Vitamin D3) fluoxetine 20 mg tablet 20 mg PO QAM 02/25/23 06/17/25 History fluoxetine 40 mg capsule 40 mg PO QAM 02/25/23 06/17/25 History levothyroxine 50 mcg capsule 50 mcg PO QAM 02/25/23 06/17/25 History carbidopa 25 mg-levodopa 100 mg 1 tab PO DAILY 06/17/25 06/17/25 History tablet duloxetine 30 mg capsule,delayed 30 mg PO DAILY 06/17/25 06/17/25 History release duloxetine 60 mg capsule,delayed 60 mg PO DAILY 06/17/25 06/17/25 History release estradiol 0.01% (0.1 mg/gram) 1 applic vaginal DAILY 06/17/25 06/17/25 History vaginal cream fesoterodine 8 mg tablet,extended 8 mg PO DAILY 06/17/25 06/17/25 History release 24 hr mirabegron 50 mg tablet,extended 50 mg PO DAILY 06/17/25 06/17/25 History release 24 hr (Myrbetriq) rasagiline 0.5 mg tablet 0.5 mg PO DAILY 06/17/25 06/17/25 History acetaminophen 325 mg tablet 650 mg (2 x 325 mg) PO Q6 #30 tabs 06/20/25 Rx aspirin 81 mg tablet,delayed 81 mg PO BID #0 tabs 06/20/25 06/17/25 Rx release oxycodone 5 mg tablet 5 mg PO Q4H PRN pain #30 tabs 06/20/25 Rx polyethylene glycol 3350 17 gram 17 g PO BID #30 ea 06/20/25 Rx oral powder packet (Miralax) sennosides 8.6 mg-docusate sodium 2 tab PO HS #30 tabs 06/20/25 Rx 50 mg tablet (Senokot-S) Hospital Stay Data Consultations 06/17/25 15:54 Consult Orthopedic Surgery Routine ED Decision to Admit Stat 06/17/25 18:16 Consult Anesthesiology Routine Procedures Performed Operation Date: 06/18/25 08:30 Actual Procedures p Right Long Troch Nail(Right) - Chris Pedro MD Diagnostic Imagining Performed Hip/Pelvis X-Ray 06/17/25 13:39 SINGLE VIEW PELVIS; 2 VIEWS RIGHT HIP CLINICAL HISTORY: Fall with right hip injury. FINDINGS: An AP view of the pelvis is obtained with AP and crosstable lateral views of the right hip. No prior studies are available for comparison at the time of dictation. The skeletal structures are osteopenic. There is a mildly displaced intertrochanteric fracture of the right proximal femur. Overlying soft tissue edema is observed. No additional acute fracture is seen involving the left hip or the bony pelvis. There is moderate to advanced arthritic change and joint space narrowing seen in both hips. Lumbosacral spondylosis is partially imaged. Degenerative sclerosis is noted in the sacroiliac joints. IMPRESSION: Intertrochanteric fracture of the right proximal femur as above. Electronically signed by: Olaf Daley M.D. 06/17/2025 3:46 PM Femur X-Ray 06/18/25 00:00 FL femur RT 2V CLINICAL HISTORY: RIGHT LONG TROCH NAIL COMPARISON STUDY: 06/17/2025 FLUOROSCOPY TIME: 73 seconds FLUOROSCOPY IMAGES: 5 EXPOSURE DOSE: 10 mGy FINDINGS: Fluoroscopy was provided for right femoral gamma nail. IMPRESSION: Intraoperative fluoroscopy. ACT 112: Negative or not required by law. Electronically signed by: Nathan Howell M.D. 06/19/2025 9:52 AM 06/20/25 Range/Units 06:44 WBC 5.99 (4.8-10.8) K/ul RBC 2.76 L (4.20-5.40) M/uL Hgb 8.9 L (12.0-16.0) g/dL Hct 25.8 L (37.0-47.0) % MCV 93.5 (80.0-100.0) fL MCH 32.2 (25.0-34.0) pg MCHC 34.5 (32.0-36.0) g/dL RDW Std Deviation 41.1 (36.4-46.3) fL RDW Coeff of Asha 12.1 (11.5-14.5) % Plt Count 128 L (130-400) K/uL MPV 9.6 (9.4-12.4) fL Immature Gran % (Auto) 1.2 % Neut % (Auto) 72.4 % Lymph % (Auto) 15.5 % [place] % (Auto) 9.8 % Eos % (Auto) 0.8 % Baso % (Auto) 0.3 % Neut # (Auto) 4.33 (1.40-6.50) K/uL Lymph # (Auto) 0.93 L (1.20-3.40) K/uL [place] # (Auto) 0.59 (0.11-0.59) K/uL Eos # (Auto) 0.05 (0.00-0.50) K/uL Baso # (Auto) 0.02 (0.00-0.20) K/uL Immature Gran # (Auto) 0.07 (0.01-0.20) K/uL Sodium 140 (136-145) mmol/L Potassium 4.1 (3.5-5.1) mmol/L Chloride 104 (98-107) mmol/L Carbon Dioxide 31 (21-32) mmol/L Anion Gap 5 (3-11) BUN 28 H (6-23) mg/dl Creatinine 0.54 L (0.6-1.2) mg/dl Est Cr Clr Drug Dosing 81.5 ml/min eGFR 96.55 BUN/Creatinine Ratio 51.9 H (10-20) Glucose 88 (70-99(Fasting)) mg/dl Calcium 8.8 (8.6-10.3) mg/dl Phosphorus 2.8 (2.5-4.9) mg/dl Magnesium 1.8 (1.7-2.4) mg/dl Pending Results Patient Have Any Pending Studies at Discharge: No Discharge Instructions Given to Patient (Per Discharging Provider) MEDICATION CHANGES: You were started on new medications as a result of your surgery. It is recommended that you increase your ASA 81mg to twice daily. Please discuss with your orthopedic surgeon when you can reduce it back to once daily. You may take oxycodone 5mg every 6hr as needed for severe pain. It is recommended you take 650mg of Tylenol every 6 hours consistently to help with pain control. For bowel regimen please take Miralax 17g by mouth twice daily along with Senna- S, 2 tablets at bedtime. Please continue all other medications. SUMMARY OF TEST RESULTS: You were admitted to hospital after you sustained a fall at the gym. You fractured your right hip and this was surgically repaired by Dr. Pedro. Your hemoglobin at discharge was 8.9. Prior to your surgery it was 11.9. We will have [facility] follow this closely. This is due to your fracture. Your vitamin D level was checked and it was found to be within normal range at 78.0. PENDING TEST RESULTS: None RECOMMENDATIONS FOR FOLLOW-UP: Please follow up with primary care provider upon discharge from [facility]. Please take medications as prescribed. It is recommended to have your CBC (blood counts) monitored daily at [facility] until stabilizes. I encourage you to eat more protein, including protein shakes, that were started during the hospital stay. This will assist with wound healing. OTHER INSTRUCTIONS: Seek medical attention if you have: * temperature above 101 * chest pain or trouble breathing * abdominal pain, nausea, vomiting * diarrhea, dark stools or bloody stools * any unanswered questions or concerns Call 911 if symptoms are severe. Please take good care of yourself. It has been a pleasure taking care of you. Please take care of yourself. If you have any questions regarding your recent hospitalization please contact [facility] and request [facility] Hospitalist @ [phone]. Arelis Epperson PA-C Total Time Total Time Spent Total Time Spent (In Minutes): 45 minutes Supervising Physician Co-Signing Physician Notes Pt seen and examined by sc, care coordinated w/ BAneudy Epperson PA-C, pls refer to her note above for further detail. Pt seen sitting up in bed this AM, pt denies any fever, chills, chest pain, shortness of breath, abd. pain. Dressings clean, dry intact. Lungs CTAB, heart sounds regular. Hgb down to 8.9. Pt is on ASA BID for DVT ppx. PT - recommending rehab, plan to discharge to rehab/ [facility] today. MD Abiel
[2025-06-20 15:42] VITALS: BP 122/70; PULSE 66; RESP 18; TEMP 97.9; O2SAT 96
[2025-06-20] MEDS ORDERED: POLYETHYLENE (MIRALAX) 17 GM PACK PO SCH (18:00)
== END 2025-06-20 15:45 | DRG 481 ==
LOC: ED 13:06 → 3N 16:03 → SUATTDRO 16:03 → 3N 17:49
DX: G20.A1 Parkinson's disease without dyskinesia, without mention of fluctuations; Z79.82 Long term (current) use of aspirin; D62 Acute posthemorrhagic anemia; Z87.891 Personal history of nicotine dependence; Y93.A1 Activity, exercise machines primarily for cardiorespiratory conditioning; W01.198A Fall on same level from slipping, tripping and stumbling with subsequent striking against other object, initial encounter; Y92.39 Other specified sports and athletic area as the place of occurrence of the external cause; F32.9 Major depressive disorder, single episode, unspecified; Z79.890 Hormone replacement therapy; E03.9 Hypothyroidism, unspecified; S72.141A Displaced intertrochanteric fracture of right femur, initial encounter for closed fracture